=== PATIENT | female | born 1935 | race Asian ===

== ENCOUNTER → 2022-01-25 08:43 | Outpatient (CLI) | payer MEDICARE, BC, SELFPAY ==
[2022-01-25 09:12] LABS: Add Manual Diff / Slide Review NO; Basophils Absolute Auto 0 /uL (0-100); Basophils Percent Auto 0.7 % (0-2); Eosinophils Absolute Auto 300 /uL (0-450); Eosinophils Percent Auto 5.6 % (2-4); Hematocrit 38.3 % (36-46); Hemoglobin 13.2 g/dL (12.0-16.0); Lymphocytes Absolute Auto 1100 /uL (1100-4500); Lymphocytes Percent Auto 17.3 % (25-40); Mean Corpuscular HGB Conc 34.5 % (30-36); Mean Corpuscular Volume 98.6 fL (80-100); Monocytes Absolute Auto 500 /uL (0-900); Monocytes Percent Auto 7.6 % (3-14); Neutrophils Absolute Auto 4200 /uL (1500-7000); Neutrophils Percent Auto 68.8 % (50-75); Platelet Count 207 X10^3/uL (150-400); Red Blood Cell Count 3.88 X10^6/uL (4.0-5.2); Red Cell Distribution Width 15.6 % (11.6-14.8); White Blood Cell Count 6.1 X10^3/uL (4.5-11.0)
[2022-01-25 09:26] LABS: Erythrocyte Sedimentation Rate 34 MM/HR (0-20)
[2022-01-25 09:30] LABS: Alanine Aminotransferase 18 IU/L (<35); Albumin 4.3 g/dL (3.5-5.0); Albumin Globulin Ratio 1.4 (1.0-2.8); Alkaline Phosphatase 44 U/L (38-126); Aspartate Aminotransferase 28 IU/L (14-36); BUN Creatinine Ratio 15.7 (6-22); Bilirubin Total 0.6 mg/dL (0.2-1.3); Blood Urea Nitrogen 14 mg/dL (7-17); C-Reactive Protein Quant < 0.5 mg/dL (<1.0); Calcium 8.8 mg/dL (8.4-10.2); Carbon Dioxide 31 mmol/L (22-32); Chloride 104 mmol/L (98-107); Cholesterol 214 mg/dL (140-199); Estimated Glomerular Filt Rate > 60 mL/min (>60); Globulin 3.1 g/dL (1.7-4.1); Glucose 96 mg/dL (80-110); HDL Cholesterol 77 mg/dL (40-60); HEMOLYSIS < 15 (0-50); LDL Cholesterol Calculated 106 mg/dL (<100); Potassium 3.9 mmol/L (3.4-5.1); Sodium 139 mmol/L (137-145); Total Protein 7.4 g/dL (6.3-8.2); Triglycerides 157 mg/dL (35-150)
== END ==
PROVIDERS: PCP Physician Assistant; Referring Provider Physician Assistant; Visit Provider Physician Assistant
DX: E78.5 Hyperlipidemia, unspecified (principal); M06.9 Rheumatoid arthritis, unspecified
CPT/HCPCS: 36415; 80053; 80061; 85025; 85651; 86140

== ENCOUNTER → 2022-10-17 13:55 | Outpatient (CLI) | payer MEDICARE, OTHER, SELFPAY ==
--- NOTE | 2022-10-17 | DI.MG.S_ITS ---
BILATERAL DIGITAL SCREENING MAMMOGRAM 3D/2D WITH CAD: 10/17/2022 CLINICAL: Routine screening. Comparison is made to exam dated: 03/31/2021 mammogram - outside location. Both breasts are heterogeneously dense, which may obscure small masses (category c / 51-75% glandular tissue). Current study was also evaluated with a Computer Aided Detection (CAD) system. No significant masses, calcifications, or other findings are seen in either breast. There has been no significant interval change. IMPRESSION: NEGATIVE There is no mammographic evidence of malignancy. A 1 year screening mammogram is recommended. This exam was interpreted at Station ID: [id number]. NOTE: For mammograms, a report in lay terms will be sent to the patient. Approximately 15% of breast malignancies will not be visualized mammographically. In the management of a palpable breast mass, a negative mammogram must not discourage biopsy of a clinically suspicious lesion. Electronically Signed By: Gudelia [email or web address]/[email or web address]:10/17/2022 17:34:36 letter sent: Normal Exam ACR BI-RADS Category 1: Negative [id number]
== END ==
PROVIDERS: PCP Physician Assistant; Referring Provider Physician Assistant; Visit Provider Physician Assistant
DX: Z12.31 Encounter for screening mammogram for malignant neoplasm of breast (principal)
CPT/HCPCS: 77063; 77067

== ENCOUNTER → 2023-01-02 10:56 | Outpatient (CLI) | payer MEDICARE, OTHER, SELFPAY ==
[2023-01-02 12:44] LABS: Add Manual Diff / Slide Review NO; Basophils Absolute Auto 0 /uL (0-100); Eosinophils Absolute Auto 100 /uL (0-450); Eosinophils Percent Auto 1.6 % (2-4); Hematocrit 34.4 % (36-46); Hemoglobin 11.7 g/dL (12.0-16.0); Lymphocytes Absolute Auto 1100 /uL (1100-4500); Lymphocytes Percent Auto 23.2 % (25-40); Mean Corpuscular Hemoglobin 34.5 PG (26-34); Mean Corpuscular Volume 101.7 fL (80-100); Monocytes Absolute Auto 400 /uL (0-900); Monocytes Percent Auto 8.4 % (3-14); Neutrophils Absolute Auto 3200 /uL (1500-7000); Neutrophils Percent Auto 65.8 % (50-75); Platelet Count 183 X10^3/uL (150-400); Red Blood Cell Count 3.39 X10^6/uL (4.0-5.2); Red Cell Distribution Width 14.3 % (11.6-14.8); White Blood Cell Count 4.8 X10^3/uL (4.5-11.0)
[2023-01-02 13:11] LABS: HEMOLYSIS < 15 (0-50); Iron 110 ug/dL (37-170)
[2023-01-02 13:21] LABS: Percent Iron Saturation 45 % (15-50); Total Iron Binding Capacity 247 ug/dL (265-497); Transferrin 214 mg/dL (206-381)
[2023-01-02 13:52] LABS: Ferritin 338 ng/mL (11-264)
== END ==
PROVIDERS: PCP Physician Assistant; Referring Provider Internal Medicine Rheumatology; Visit Provider Internal Medicine Rheumatology
DX: M05.9 Rheumatoid arthritis with rheumatoid factor, unspecified (principal); D64.9 Anemia, unspecified
CPT/HCPCS: 36415; 82728; 83540; 83550; 85025

== ENCOUNTER 2023-08-19 22:07 | Inpatient (IN) | payer MEDICARE, OTHER, SELFPAY ==
[2023-08-19 22:10] VITALS: BP 159/69; PULSE 66; O2SAT 98
[2023-08-19 22:13] VITALS: BP 121/67; PULSE 66; RESP 18; TEMP 36.3; O2SAT 99; BMI 20.4
--- NOTE | 2023-08-19 22:19 | DI.RAD.S_ITS ---
PROCEDURE: XR HIP W PEL IF DONE RT 2V INDICATIONS: fall with pain TECHNIQUE: 2 views of the hip were acquired. COMPARISON: None. FINDINGS: Bones: Diffuse osteopenia. Lower lumbar spondylosis. Degenerative changes of the bilateral hips. Bony pelvis appears intact. Comminuted, mildly displaced right intertrochanteric femoral neck fracture. Soft tissues: No suspicious soft tissue calcifications or masses. IMPRESSION: Mildly comminuted intertrochanteric right femoral neck fracture. Dictated by: Randall Jansen M.D. on 08/19/2023 at 23:59 Approved by: Randall Jansen M.D. on 08/20/2023 at 0:00
--- NOTE | 2023-08-19 22:23 | ED.FALL ---
HPI - Fall General Chief Complaint: Fall Stated Complaint: R hip pain Time Seen by Provider: 08/19/23 22:17 Source: patient and family Mode of arrival: EMS Limitations: no limitations History of Present Illness HPI Narrative: Patient is an 87-year-old female. Lives at an independent living facility. At baseline ambulates without assistance of a cane or walker or wheelchair. Not on blood thinners. She was walking at the facility where she lives where she states that she felt like her right hip gave out on her and then she fell down landing on her right hip. She was unable to walk afterwards. Had to crawl back to her room. She reports that she did not hit her head. No loss of consciousness. No other injuries from the event. Has discomfort with any palpation or movement of the right hip. Unable to stand on the right hip. She states she did not trip. Prior to the fall she did not have palpitations or lightheadedness or shortness of breath or headache. She states she just felt like her right hip gave out on her. Related Data Allergies Allergy/AdvReac Type Severity Reaction Status Date / Time No Known Drug Allergies Allergy Verified 08/19/23 22:21 Review of Systems Cardiovascular Cardiovascular: Reports system reviewed and no additional complaints, except as documented Respiratory Respiratory: Reports system reviewed and no additional complaints, except as documented Gastrointestinal Gastrointestinal: Reports system reviewed and no additional complaints, except as documented Genitourinary Genitourinary: Reports system reviewed and no additional complaints, except as documented Musculoskeletal Musculoskeletal: Reports system reviewed and no additional complaints, except as documented Hematologic/Lymphatic On Anticoagulants: No Exam Initial Vital Signs Initial Vital Signs: Vital Signs Pulse Rate 66 08/19/23 22:10 Blood Pressure 159/69 H 08/19/23 22:10 Pulse Oximetry 98 08/19/23 22:10 HENAK Head: normal to inspection and normocephalic Resp Effort & Inspection: normal respiratory effort Auscultation: clear to auscultation bilaterally Cardio Rate: regular rate Rhythm: regular rhythm Back/Spine/Pelvis Cervical Spine: No cervical spinal tenderness Skin General: no rashes or lesions noted Neuro General: patient alert, patient awake and patient oriented x3 Cognition: normal cognition Speech: speech normal Extrem Other: Bilateral upper extremities and left lower extremities unremarkable. Right hip and right knee are unremarkable. She does have tenderness to palpation in any movement of the right hip. Scores GCS R[place] coma scale eye opening: Spontaneous [place] coma scale verbal response: Orientated Course Orders Ordered: ED Orders 08/19/23 22:19 XR hip w pel if done RT 2V Stat 08/19/23 23:09 CT pelvis wo con Stat 08/19/23 23:24 Basic Metabolic Panel Stat Complete Blood Count AUTO DIFF Stat 08/20/23 01:33 Consult to Orthopedic Surgery Stat Discontinued Medications Morphine Sulfate (Morphine 2 Mg/Ml Inj) 2 mg IV NOW ONE Stop: 08/19/23 22:41 Last Admin: 08/19/23 23:40 Dose: 2 mg Documented By: JESSICA Morphine Sulfate (Morphine 2 Mg/Ml Inj) 2 mg IV NOW ONE Stop: 08/20/23 00:56 Last Admin: 08/20/23 01:00 Dose: 2 mg Documented By: JESSICA Vital Signs Vital signs: Vital Signs - 8 hr 08/19/23 22:10 08/19/23 22:10 08/19/23 22:13 Temperature 97.4 F L Pulse Rate 66 66 Respiratory Rate 18 Blood Pressure 159/69 H 121/67 Pulse Oximetry 98 99 Oxygen Delivery Method Room Air 08/19/23 22:30 08/19/23 22:31 08/19/23 22:31 Temperature Pulse Rate 65 68 Respiratory Rate Blood Pressure 138/62 Pulse Oximetry 98 99 Oxygen Delivery Method 08/19/23 23:00 08/19/23 23:00 08/19/23 23:30 Temperature Pulse Rate 71 70 Respiratory Rate Blood Pressure 149/65 H Pulse Oximetry 98 97 Oxygen Delivery Method 08/20/23 00:00 08/20/23 00:30 Temperature Pulse Rate 65 63 Respiratory Rate 18 Blood Pressure Pulse Oximetry 96 96 Oxygen Delivery Method MDM - Fall Lab Data Attestation: I reviewed the patient's lab results. 08/19/23 23:24 08/19/23 23:24 Labs: Lab Results 08/19/23 Range/Units 23:24 WBC 9.8 (4.5-11.0) X10^3/uL RBC 3.25 L (4.0-5.2) X10^6/uL Hgb 11.3 L (12.0-16.0) g/dL Hct 32.7 L (36-46) % MCV 100.6 H (80-100) fL MCH 34.7 H (26-34) PG MCHC 34.5 (30-36) % RDW 15.7 H (11.6-14.8) % Plt Count 183 (150-400) X10^3/uL Neut % (Auto) 86.0 H (50-75) % Lymph % (Auto) 4.4 L (25-40) % [place] % (Auto) 9.1 (3-14) % Eos % (Auto) 0.0 L (2-4) % Baso % (Auto) 0.5 (0-2) % Neut # (Auto) 8400 H (5507-8903) /uL Lymph # (Auto) 400 L (0971-0067) /uL [place] # (Auto) 900 (0-900) /uL Eos # (Auto) 0 (0-450) /uL Baso # (Auto) 0 (0-100) /uL Sodium 139 (137-145) mmol/L Potassium 3.8 (3.4-5.1) mmol/L Chloride 100 (98-107) mmol/L Carbon Dioxide 31 (22-32) mmol/L BUN 32 H (7-17) mg/dL Creatinine 1.00 (0.52-1.04) mg/dL Estimated GFR 55 L (>60) mL/min BUN/Creatinine Ratio 32.0 H (6-22) Glucose 109 (80-110) mg/dL Calcium 9.7 (8.4-10.2) mg/dL Imaging Data Extremity x-ray #1: Radiologist's Impression: PROCEDURE: XR HIP W PEL IF DONE RT 2V INDICATIONS: fall with pain TECHNIQUE: 2 views of the hip were acquired. COMPARISON: None. FINDINGS: Bones: Diffuse osteopenia. Lower lumbar spondylosis. Degenerative changes of the bilateral hips. Bony pelvis appears intact. Comminuted, mildly displaced right intertrochanteric femoral neck fracture. Soft tissues: No suspicious soft tissue calcifications or masses. IMPRESSION: Mildly comminuted intertrochanteric right femoral neck fracture. CT pelvis: Radiologist's Impression: ROCEDURE: CT PEL WO CON INDICATIONS: R femoral neck/intertrochanteric hip fracture TECHNIQUE: Noncontrast 3 mm axial sections acquired through the bony pelvis, with coronal and sagittal reformatting. COMPARISON: None. FINDINGS: Image quality: Diagnostic Bones: There is a comminuted, mildly impacted fracture involving the intertrochanteric region of the right femoral neck. Remainder of the visualized osseous structures appear intact. Bony pelvis appears intact. Degenerative changes of the bilateral hips. Lower lumbar spondylosis. No suspicious osseous lesions. Soft tissues: There is soft tissue edema surrounding the fracture site. Subcutaneous soft tissue edema of the right hip. No organized fluid collection seen. No significant joint effusion identified. Intraperitoneal structures appear unremarkable without acute abnormalities. Moderate fecal burden seen throughout the colon. Dense atherosclerotic calcifications of the abdominal aorta and iliac vessels. No aneurysmal dilatation. Normal appendix. No pathologic pelvic adenopathy. IMPRESSION: Comminuted, minimally impacted fracture of the intertrochanteric region of the right femoral neck MDM Narrative Medical decision making narrative: At baseline patient is very ambulatory. Is in the independent living at [facility]. Normally is able to ambulate without assist devices. Had a fall and now has right-sided intertrochanteric hip fracture. Not on thinners. History of rheumatoid arthritis. No other injuries from the event. Discussed the case with Dr. Woodward (orthopedic surgery) who will evaluate the patient in the morning. Discussed the case with Dr. Porras hospitalist who will admit. Discussed the need for admission with the patient and her family at bedside. They expressed understanding and agreement with plan. Discharge Plan Departure Patient Disposition: Admitted As Inpatient Clinical Impression: Intertrochanteric fracture of right hip Admit Date/Time: 08/20/23 01:56
[2023-08-19 22:30] VITALS: PULSE 65; O2SAT 98
[2023-08-19 22:31] VITALS: BP 138/62; PULSE 68; O2SAT 99
[2023-08-19 23:00] VITALS: BP 149/65; PULSE 71; O2SAT 98
--- NOTE | 2023-08-19 23:09 | DI.CT.S_ITS ---
PROCEDURE: CT PEL WO CON INDICATIONS: R femoral neck/intertrochanteric hip fracture TECHNIQUE: Noncontrast 3 mm axial sections acquired through the bony pelvis, with coronal and sagittal reformatting. COMPARISON: None. FINDINGS: Image quality: Diagnostic Bones: There is a comminuted, mildly impacted fracture involving the intertrochanteric region of the right femoral neck. Remainder of the visualized osseous structures appear intact. Bony pelvis appears intact. Degenerative changes of the bilateral hips. Lower lumbar spondylosis. No suspicious osseous lesions. Soft tissues: There is soft tissue edema surrounding the fracture site. Subcutaneous soft tissue edema of the right hip. No organized fluid collection seen. No significant joint effusion identified. Intraperitoneal structures appear unremarkable without acute abnormalities. Moderate fecal burden seen throughout the colon. Dense atherosclerotic calcifications of the abdominal aorta and iliac vessels. No aneurysmal dilatation. Normal appendix. No pathologic pelvic adenopathy. IMPRESSION: Comminuted, minimally impacted fracture of the intertrochanteric region of the right femoral neck Dictated by: Randall Jansen M.D. on 08/20/2023 at 0:27 Approved by: Randall Jansen M.D. on 08/20/2023 at 0:30
[2023-08-19 23:30] VITALS: PULSE 70; O2SAT 97
[2023-08-19] MEDS: MORPHINE 2 MG/ML INJ IV (23:40)
[2023-08-19 23:58] LABS: Add Manual Diff / Slide Review NO; Basophils Absolute Auto 0 /uL (0-100); Basophils Percent Auto 0.5 % (0-2); Eosinophils Absolute Auto 0 /uL (0-450); Hematocrit 32.7 % (36-46); Hemoglobin 11.3 g/dL (12.0-16.0); Lymphocytes Absolute Auto 400 /uL (1100-4500); Lymphocytes Percent Auto 4.4 % (25-40); Mean Corpuscular HGB Conc 34.5 % (30-36); Mean Corpuscular Hemoglobin 34.7 PG (26-34); Mean Corpuscular Volume 100.6 fL (80-100); Monocytes Absolute Auto 900 /uL (0-900); Monocytes Percent Auto 9.1 % (3-14); Neutrophils Absolute Auto 8400 /uL (1500-7000); Platelet Count 183 X10^3/uL (150-400); Red Blood Cell Count 3.25 X10^6/uL (4.0-5.2); Red Cell Distribution Width 15.7 % (11.6-14.8); White Blood Cell Count 9.8 X10^3/uL (4.5-11.0)
[2023-08-20] VITALS (19 sets, daily range): BP systolic 90–153; BP diastolic 46–68; PULSE 57–82; RESP 12–18; TEMP 36.2–37.6; O2SAT 93–100; BMI 20.4
--- NOTE | 2023-08-20 | DI.RAD.S_ITS ---
PROCEDURE: XR HIP W PEL IF DONE RT 2V INDICATIONS: FEMUR NAILING TECHNIQUE: 4 fluoroscopic views of the hip were acquired. COMPARISON: [facility], CR, XR HIP W PEL IF DONE RT 2V, 08/19/2023, 22:30. FINDINGS: 4 intraoperative fluoroscopic images of the right hip demonstrate interval open reduction and internal fixation of previously described right intertrochanteric femoral neck fracture. IMPRESSION: Fluoroscopic support for ORIF of no intertrochanteric right femoral neck fracture. Please see separate procedure note for further details. Dictated by: Randall Jansen M.D. on 08/20/2023 at 22:15 Approved by: Randall Jansen M.D. on 08/20/2023 at 22:17
[2023-08-20 00:08] LABS: Blood Urea Nitrogen 32 mg/dL (7-17); Calcium 9.7 mg/dL (8.4-10.2); Carbon Dioxide 31 mmol/L (22-32); Chloride 100 mmol/L (98-107); Estimated Glomerular Filt Rate 55 mL/min (>60); Glucose 109 mg/dL (80-110); HEMOLYSIS < 15 (0-50); Potassium 3.8 mmol/L (3.4-5.1); Sodium 139 mmol/L (137-145)
[2023-08-20] MEDS: MORPHINE 2 MG/ML INJ IV (01:00)
[2023-08-20] MEDS: SODIUM CHLORIDE 0.9% 1,000 ML 100 ML IV ×2 (04:13→14:18)
[2023-08-20] MEDS: ONDANSETRON 4 MG/2 ML INJ IV (04:14)
--- NOTE | 2023-08-20 04:32 | PM.HP.1 ---
History of Present Illness History of Present Illness Chief complaint: R hip pain Narrative: 87 years old female with history of rheumatic arthritis on methotrexate, hypertension, hyperlipidemia, presents to the ER after ground-level fall while walking the facility. The patient's leg gave away and she fell on her right side landing on her right hip. Unable to ambulate since then due to pain. Denies any loss of consciousness, head injury, chest pain, palpitations, lightheadedness or loss of balance prior to the event. In the ER she was found to have right femoral neck fracture on the CT scan. Orthopedic surgery was contacted and will see her in the morning. [facility] Social History household members: none Smoking Status: Never smoker alcohol intake: never Meds Home Medications and Allergies Home Medications Medication Instructions Recorded Confirmed Type amlodipine 5 mg tablet 5 mg PO DAILY 08/20/23 08/20/23 History atorvastatin 40 mg tablet 40 mg PO DAILY 08/20/23 08/20/23 History fluoride (sodium) 1.1 % dental gel PO BID 08/20/23 History folic acid 1 mg tablet 1 mg PO DAILY 08/20/23 08/20/23 History irbesartan 150 mg tablet 150 mg PO DAILY 08/20/23 08/20/23 History methotrexate sodium 2.5 mg tablet 15 mg PO 08/20/23 History Allergies Allergy/AdvReac Type Severity Reaction Status Date / Time No Known Drug Allergies Allergy Verified 08/19/23 22:21 Review of Systems Review of Systems ROS: Yes All systems reviewed with the patient and are negative except as otherwise documented Constitutional Constitutional: Reports as per HPI and Reports system reviewed and no additional complaints, except as documented Eyes Eyes: Reports as per HPI and Reports system reviewed and no additional complaints, except as documented ENT Ears, Nose, Mouth, and Throat: Yes as per HPI and Yes system reviewed and no additional complaints, except as documented Cardiovascular Cardiovascular: Reports system reviewed and no additional complaints, except as documented Respiratory Respiratory: Reports system reviewed and no additional complaints, except as documented Gastrointestinal Gastrointestinal: Reports system reviewed and no additional complaints, except as documented Genitourinary Genitourinary: Reports system reviewed and no additional complaints, except as documented Musculoskeletal Musculoskeletal: Reports system reviewed and no additional complaints, except as documented, Reports abnormal gait and Reports numbness Neurologic Neurologic: Reports system reviewed and no additional complaints, except as documented, Reports abnormal gait, Reports confusion and Reports numbness Psychiatric Psychiatric: Reports system reviewed and no additional complaints, except as documented and Reports confusion Exam Vital Signs (past 8 hours): - 08/19/23 22:10 08/19/23 22:10 08/19/23 22:13 Temperature 97.4 F L Pulse Rate 66 66 Respiratory Rate 18 Blood Pressure 159/69 H 121/67 Pulse Oximetry 98 99 Oxygen Delivery Method Room Air Oxygen Flow Rate 08/19/23 22:30 08/19/23 22:31 08/19/23 22:31 Temperature Pulse Rate 65 68 Respiratory Rate Blood Pressure 138/62 Pulse Oximetry 98 99 Oxygen Delivery Method Oxygen Flow Rate 08/19/23 23:00 08/19/23 23:00 08/19/23 23:30 Temperature Pulse Rate 71 70 Respiratory Rate Blood Pressure 149/65 H Pulse Oximetry 98 97 Oxygen Delivery Method Oxygen Flow Rate 08/20/23 00:00 08/20/23 00:30 08/20/23 01:00 Temperature Pulse Rate 65 63 65 Respiratory Rate 18 Blood Pressure Pulse Oximetry 96 96 96 Oxygen Delivery Method Oxygen Flow Rate 08/20/23 01:32 08/20/23 02:00 08/20/23 02:30 Temperature Pulse Rate 82 57 L 57 L Respiratory Rate Blood Pressure Pulse Oximetry 96 97 Oxygen Delivery Method Oxygen Flow Rate 08/20/23 03:00 08/20/23 03:30 08/20/23 03:32 Temperature Pulse Rate 58 L 62 62 Respiratory Rate Blood Pressure Pulse Oximetry 96 97 99 Oxygen Delivery Method Room Air Oxygen Flow Rate 08/20/23 03:36 08/20/23 04:13 Temperature 97.2 F L Pulse Rate 60 Respiratory Rate 17 Blood Pressure 109/49 L 153/68 H Pulse Oximetry 96 Oxygen Delivery Method Oxygen Flow Rate 0 Oxygen Delivery Method Room Air Oxygen Flow Rate 0 Const General: cooperative, comfortable and well developed Orientation: alert and oriented x3 HENMT Head: normal to inspection, normocephalic and atraumatic Face and sinus: normal facial exam Mouth: oral mucosae normal and moist mucous membranes Throat: posterior oropharynx normal Eyes General: appearance normal, both eyes and all related structures Pupils: PERRL EOM: EOM intact bilaterally Neck Neck: normal visual inspection and full ROM Chest Chest: normal inspection of the chest Resp Effort & Inspection: normal respiratory effort and able to speak in complete sentences Auscultation: clear to auscultation bilaterally Cardio Palpation: normal PMI Rate: regular rate Rhythm: regular rhythm Heart Sounds: S1 normal and S2 normal GI Inspection: normal to inspection Palpation: soft and no hepatosplenomegaly Auscultation: normal bowel sounds Skin General: no rashes or lesions noted Lesions: no lesions Rashes: no rashes Trauma: no lacerations or abrasions Neuro General: patient alert, patient awake, patient oriented x3 and no focal motor deficits Cranial Nerves: CN's II-XI intact bilaterally Cognition: normal cognition Speech: speech normal Gait: normal gait Motor: muscle tone normal throughout Sensory Exam: no sensory deficits noted Extrem General: full ROM and no calf tenderness Psych Appearance: grossly normal Mental Status: mental status grossly normal Speech and Movement: speech and movement normal Objective Labs 08/19/23 23:24 08/19/23 23:24 Labs: Laboratory Results - last 24 hr 08/19/23 23:24 WBC 9.8 RBC 3.25 L Hgb 11.3 L Hct 32.7 L MCV 100.6 H MCH 34.7 H MCHC 34.5 RDW 15.7 H Plt Count 183 Neut % (Auto) 86.0 H Lymph % (Auto) 4.4 L [place] % (Auto) 9.1 Eos % (Auto) 0.0 L Baso % (Auto) 0.5 Neut # (Auto) 8400 H Lymph # (Auto) 400 L [place] # (Auto) 900 Eos # (Auto) 0 Baso # (Auto) 0 Sodium 139 Potassium 3.8 Chloride 100 Carbon Dioxide 31 BUN 32 H Creatinine 1.00 Estimated GFR 55 L BUN/Creatinine Ratio 32.0 H Glucose 109 Calcium 9.7 Assessment & Plan Assessment and plan (1) Intertrochanteric fracture of right hip: Status: Acute Plan: Pain medication and Zofran as needed IV fluids N.p.o. Orthopedic surgery consult PT and OT evaluation on discharge consult for discharge planning (2) HTN (hypertension): Status: Acute Plan: Restart irbesartan and amlodipine (3) Hyperlipemia: Status: Acute Plan: Restart atorvastatin (4) Rheumatoid arthritis: Status: Acute Plan: Hold methotrexate for now Time Spent With Patient Time with patient: 50 to 69 minutes with 50% spent counseling/coordinating care Quality VTE Deep Vein Thrombosis/Pulmonary Embolism Present on Admission: No MIPS - Admit I confirm the patient?s Advance Care Plan is present, Code status is documented, Surrogate decision maker is in patient?s record [If Yes, STOP here]: Yes MIPS - Meds 'Current medications' to include all prescriptions, [id number] products, herbals, cannabis/cannabidiol products, and vitamin/mineral/dietary (nutritional) supplements. I have utilized all available resources to obtain, update, or review the patient?s current medications. [If Yes, STOP here]: Yes
--- NOTE | 2023-08-20 08:42 | P.HP_ITS ---
History of Present Illness History of Present Illness Chief complaint: R hip pain Narrative: From overnight provider: 87 years old female with history of rheumatic arthritis on methotrexate, hypertension, hyperlipidemia, presents to the ER after ground-level fall while walking the facility. The patient's leg gave away and she fell on her right side landing on her right hip. Unable to ambulate since then due to pain. Denies any loss of consciousness, head injury, chest pain, palpitations, lightheadedness or loss of balance prior to the event. In the ER she was found to have right femoral neck fracture on the CT scan. Orthopedic surgery was contacted and will see her in the morning. [facility] Social History household members: none Smoking Status: Never smoker alcohol intake: never Meds Home Medications and Allergies Home Medications Medication Instructions Recorded Confirmed Type amlodipine 5 mg tablet 5 mg PO DAILY 08/20/23 08/20/23 History atorvastatin 40 mg tablet 40 mg PO DAILY 08/20/23 08/20/23 History fluoride (sodium) 1.1 % dental gel PO BID 08/20/23 History folic acid 1 mg tablet 1 mg PO DAILY 08/20/23 08/20/23 History irbesartan 150 mg tablet 150 mg PO DAILY 08/20/23 08/20/23 History methotrexate sodium 2.5 mg tablet 15 mg PO 08/20/23 History Allergies Allergy/AdvReac Type Severity Reaction Status Date / Time No Known Drug Allergies Allergy Verified 08/19/23 22:21 Review of Systems Review of Systems Narrative: All other systems reviewed with the patient and are negative unless otherwise stated. Exam Narrative Exam Narrative: GEN: no acute distress, pleasant woman who appears younger than stated age HEENT: moist mucous membranes, PERRL NECK: trachea midline, no JVD CV: regular rate and rhythm, no murmurs PULM: clear bilaterally ABD: soft, nontender, nondistended, no organomegaly EXT: Right lower extremity shortened and has pain with movement NEURO: awake, alert, oriented, no focal deficits Objective Labs 08/19/23 23:24 08/19/23 23:24 Labs: Laboratory Results - last 24 hr 08/19/23 23:24 WBC 9.8 RBC 3.25 L Hgb 11.3 L Hct 32.7 L MCV 100.6 H MCH 34.7 H MCHC 34.5 RDW 15.7 H Plt Count 183 Neut % (Auto) 86.0 H Lymph % (Auto) 4.4 L [place] % (Auto) 9.1 Eos % (Auto) 0.0 L Baso % (Auto) 0.5 Neut # (Auto) 8400 H Lymph # (Auto) 400 L [place] # (Auto) 900 Eos # (Auto) 0 Baso # (Auto) 0 Sodium 139 Potassium 3.8 Chloride 100 Carbon Dioxide 31 BUN 32 H Creatinine 1.00 Estimated GFR 55 L BUN/Creatinine Ratio 32.0 H Glucose 109 Calcium 9.7 Assessment & Plan Assessment and plan (1) Intertrochanteric fracture of right hip: Status: Acute Plan: Pain medication and Zofran as needed IV fluids N.p.o. Orthopedic surgery consulted and will repair PT and OT evaluation on discharge SW consult for discharge planning, may need SNF (2) HTN (hypertension): Status: Acute Plan: Restart irbesartan and amlodipine (3) Hyperlipemia: Status: Acute Plan: Restart atorvastatin (4) Rheumatoid arthritis: Status: Acute Plan: Hold methotrexate for now Plan Dispo: Likely 2 days for surgery and dispo planning. Time Spent With Patient Time with patient: 50 to 69 minutes with 50% spent counseling/coordinating care Quality VTE Deep Vein Thrombosis/Pulmonary Embolism Present on Admission: No
[2023-08-20] MEDS: FOLIC ACID 1 MG TABLET PO (10:33)
[2023-08-20] MEDS: ACETAMINOPHEN 325 MG TABLET 650 MG PO ×2 (10:39→21:50)
--- NOTE | 2023-08-20 12:37 | P.HP_ITS ---
History of Present Illness History of Present Illness Date Patient Seen: 08/20/23 Time Patient Seen: 12:37 Chief complaint: R hip pain Narrative: She was walking and she slipped and twisted her hip. She felt like it broke prior to her falling and landing on her right hip. She is been diagnosed with osteoporosis and took several doses of Fosamax but then had some dental concerns. She has a history of rheumatoid arthritis for about 3 years and is followed by the Rheumatology Clinic at [facility]. She takes methotrexate and folic acid. She is not having severe pain in her hip joints since she got started on methotrexate. She does note significant right hip pain. She has supportive family at bedside including a daughter. She lives a [facility] but in the independent section. [facility] Social History household members: none Smoking Status: Never smoker alcohol intake: never Meds Home Medications and Allergies Home Medications Medication Instructions Recorded Confirmed Type amlodipine 5 mg tablet 5 mg PO DAILY 08/20/23 08/20/23 History atorvastatin 40 mg tablet 40 mg PO DAILY 08/20/23 08/20/23 History fluoride (sodium) 1.1 % dental gel PO BID 08/20/23 History folic acid 1 mg tablet 1 mg PO DAILY 08/20/23 08/20/23 History irbesartan 150 mg tablet 150 mg PO DAILY 08/20/23 08/20/23 History methotrexate sodium 2.5 mg tablet 15 mg PO 08/20/23 History Allergies Allergy/AdvReac Type Severity Reaction Status Date / Time No Known Drug Allergies Allergy Verified 08/19/23 22:21 Review of Systems Review of Systems Narrative: She was not lightheaded did not have chest pain or other problems prior to her fall. She notes isolated right hip pain. Exam Vital Signs (past 8 hours): Oxygen Delivery Method Room Air Oxygen Flow Rate 0 Narrative Exam Narrative: She is resting comfortably in bed, HEENT is benign, lungs are clear, cor regular rate rhythm, abdomen soft and benign, right hip foreshortening of the right hip, pain with range of motion, calf soft bilaterally distally, able to fire her toe flexors and extensors Objective Labs 08/19/23 23:24 08/19/23 23:24 Labs: Laboratory Results - last 24 hr 08/19/23 23:24 WBC 9.8 RBC 3.25 L Hgb 11.3 L Hct 32.7 L MCV 100.6 H MCH 34.7 H MCHC 34.5 RDW 15.7 H Plt Count 183 Neut % (Auto) 86.0 H Lymph % (Auto) 4.4 L Nance % (Auto) 9.1 Eos % (Auto) 0.0 L Baso % (Auto) 0.5 Neut # (Auto) 8400 H Lymph # (Auto) 400 L Nance # (Auto) 900 Eos # (Auto) 0 Baso # (Auto) 0 Sodium 139 Potassium 3.8 Chloride 100 Carbon Dioxide 31 BUN 32 H Creatinine 1.00 Estimated GFR 55 L BUN/Creatinine Ratio 32.0 H Glucose 109 Calcium 9.7 comminuted right intertrochanteric hip fracture with displacement, lesser trochanter is broken off as well as a intertrochanteric fracture. Assessment & Plan Assessment and plan (1) Rheumatoid arthritis: Status: Acute (2) Intertrochanteric fracture of right hip: Status: Acute (3) HTN (hypertension): Status: Acute Plan I had an extensive discussion with the family today and I have recommended a right hip intramedullary nail for intertrochanteric hip fracture. I told them that we can probably get this scheduled this afternoon with Dr. Raoul PULIDO as long as that works into his schedule. We discussed issues related to anticipated rehab and need for short-term stay at extended care facility postoperatively. She also had questions regarding the patient's osteoporosis. That is currently being managed by her principal military analyst. She does have some additional dental issues. She maybe a candidate for osteoporotic treatment that is not a bisphosphonate. Hip open reduction internal fixation complications risks benefits were discussed with the patient and the family. We are going to try and get scheduled for this afternoon. Quality VTE Deep Vein Thrombosis/Pulmonary Embolism Present on Admission: No
--- NOTE | 2023-08-20 16:10 | PM.HP.1 ---
History of Present Illness History of Present Illness Date Patient Seen: 08/20/23 Time Patient Seen: 16:10 Chief complaint: R hip pain Narrative: This is a 87-year-old female who I am seeing today in consultation for a right intertrochanteric femur fracture. She had a ground level fall resulting in this fracture yesterday. She is currently NPO. Past medical history of hyperlipidemia hypertension and rheumatoid arthritis. Denies any recent nausea, vomiting, diarrhea, fevers, chills or any other constitutional symptoms. No other complaints at this time. Regularly she is a community ambulator. [facility] Social History household members: none Smoking Status: Never smoker alcohol intake: never Meds Home Medications and Allergies Home Medications Medication Instructions Recorded Confirmed Type amlodipine 5 mg tablet 5 mg PO DAILY 08/20/23 08/20/23 History atorvastatin 40 mg tablet 40 mg PO DAILY 08/20/23 08/20/23 History fluoride (sodium) 1.1 % dental gel PO BID 08/20/23 History folic acid 1 mg tablet 1 mg PO DAILY 08/20/23 08/20/23 History irbesartan 150 mg tablet 150 mg PO DAILY 08/20/23 08/20/23 History methotrexate sodium 2.5 mg tablet 15 mg PO 08/20/23 History Allergies Allergy/AdvReac Type Severity Reaction Status Date / Time No Known Drug Allergies Allergy Verified 08/19/23 22:21 Review of Systems Review of Systems ROS: Yes All systems reviewed with the patient and are negative except as otherwise documented Exam Vital Signs (past 8 hours): Oxygen Delivery Method Room Air Oxygen Flow Rate 0 Narrative Exam Narrative: HEENT: Head atraumatic eyes anicteric moist mucous membranes Cardiovascular: Palpable peripheral pulses extremities are warm and well perfused Respiratory: Breathing comfortably on room air Psychiatric: Appropriate mood and affect Neuro: No acute deficits Musculoskeletal: Exam of the right lower extremity demonstrates hip held internally rotated and flexed. Did not perform any movement due to known injury. Distally sensation intact from L2 through S2. 2+ dorsalis pedis pulse with brisk capillary refill less 2 seconds. Objective Labs 08/19/23 23:24 08/19/23 23:24 Labs: Laboratory Results - last 24 hr 08/19/23 23:24 WBC 9.8 RBC 3.25 L Hgb 11.3 L Hct 32.7 L MCV 100.6 H MCH 34.7 H MCHC 34.5 RDW 15.7 H Plt Count 183 Neut % (Auto) 86.0 H Lymph % (Auto) 4.4 L [place] % (Auto) 9.1 Eos % (Auto) 0.0 L Baso % (Auto) 0.5 Neut # (Auto) 8400 H Lymph # (Auto) 400 L [place] # (Auto) 900 Eos # (Auto) 0 Baso # (Auto) 0 Sodium 139 Potassium 3.8 Chloride 100 Carbon Dioxide 31 BUN 32 H Creatinine 1.00 Estimated GFR 55 L BUN/Creatinine Ratio 32.0 H Glucose 109 Calcium 9.7 Assessment & Plan Assessment & Plan narrative: Assessment: 87-year-old female with right intertrochanteric femur fracture Plan: Discussed performing intramedullary nail right hip. Risks and benefits of surgery were discussed again including the risk of infection, damage to internal structures, bleeding, nerve injury, instability, need for revision surgery, blood clots, anesthesia and . No guarantees were made regarding outcomes. Patient expressed understanding and accepted these risks and wished to go forward with surgery and consent was signed. Quality VTE Deep Vein Thrombosis/Pulmonary Embolism Present on Admission: No
[2023-08-20] MEDS: LACTATED RINGERS 1,000 ML 42 ML IV (16:38)
--- NOTE | 2023-08-20 16:45 | SUR.OPER ---
Supine on padded [place] table with bilateral legs secured in padded positioning boots and suspended in positioning spars, operative leg in traction per surgeon. Head on one pillow. Arm on non-operative side secured on padded armboard <90 degrees abduction. Arm on operative side padded and resting across chest resting on pillow then secured with tape over sheet. Padded perineal post in place per surgeon.
--- NOTE | 2023-08-20 16:49 | P.OP_ITS ---
Operative Date/Time/Diagnoses Date of procedure: 08/20/23 Time of procedure: 18:16 Pre-op diagnosis: Right intertrochanteric femur fracture Post-op diagnosis: same Procedure & Clinicians Procedure: Right hip intramedullary nail Same procedure as scheduled: Yes Indications: Indications: This is a 87 year old female with the above diagnosis. We discussed that in order to facilitate mobilization early, as well as proper healing of the fracture, we recommend operative fixation using an intramedullary nail. The risks and benefits and alternatives to the procedure were discussed. The risks include bleeding, infection, damage to internal structures, failure of the implants, and future surgery as well as anesthesia. No guarantees were made regarding outcomes. Patient expressed understanding with these risks and wished to go forth with surgery. Surgeon: Michael Barrientos Click Yes if Unassisted: Yes Anesthesia Type: General Operative Notes Findings: Right displaced intertrochanteric femur fracture with displacement of the lesser tuberosity Closure Type: primary Specimen(s): none sent Prosthetic devices, grafts, tissues, transplants, or devices: 10 x 18 cm InterTAN nail with 85 mm lag screw and 80 mm compression screw 30 mm distal interlocking screw Estimated Blood Loss (mL): 25 Blood products transfused: none Procedure in detail: Details of operation: The patient's identity was verified. The right hip was verified and site of surgery was marked. Prophylactic antibiotics were administered. The patient was taken to the operating room and anesthesia was established. Patient was positioned supine on the operating table. The feet were padded and placed into the traction boots with the injured hip in slight adduction and the uninjured hip extended about 30?. A C-arm was then brought into the OR and positioned perpendicularly to allow visualization of the hip and AP and lateral planes. The fracture was reduced by applying longitudinal traction and internal rotation and a small amount of adduction. The lateral surface of the hip was sterilely prepped after which a vertical isolation drape was placed. The surgical team paused in the patient's identity, surgical procedure and surgical site were verified. A small incision was made proximal to the greater trochanter through the fascia to the tip of the trochanter could be palpated. A threaded guide pin was then inserted through the tip of the greater trochanter to the level of the lesser tuberosity. Once the wire was appropriately positioned the entry hole was drilled. The entry/channel Reamer was used to enter the cortex and reamed the metaphyseal portion of the canal. The intramedullary nail was assembled on the insertion handle and the nail was inserted and its depth verified. Our attention was then turned to the proximal locking of the nail. A small incision was made laterally over the distal vastus tubercle, through the fascia down to the bone and the targeting jig sleeve was advanced to the bone. Under fluoroscopic control, a guidewire was positioned through the lateral cortex of the femoral neck and into the center of the femoral head. Once the wire was appropriately positioned, the length of nail was measured the lateral cortex was opened with a drill. The lag screw was assembled on the insertion handle and advanced over the guidewire into the center of the femoral head to beneath the subchondral surface. The compression screw was then placed and compressed under fluoroscopic imaging. Final AP and lateral projections were taken confirming correct nail and screw placement. Our attention was then directed distally to the interlocking of the nail. An incision was made and the guide was used to place the sleeve down to the bone. The bone was then drilled and measured and interlocking screw was placed. The wounds were copiously irrigated. The subcutaneous area was closed with interrupted 2-0 Vicryl. The wound was then infiltrated with 0.5% marcaine with epinephrine. The skin was then closed with drake after which a sterile dressing was applied. Patient was subsequently transferred from the [place] table to the hospital bed. Disposition: The patient was taken to the recovery room in stable condition having tolerated the procedure without difficulty. Complications: none Post-operative Condition: stable Disposition: PACU Plan for aftercare: Postoperative plan: Weightbearing as tolerated with crutches or walker for 4 weeks. After 4 weeks it is okay to ambulate without assistance if stable and strong enough. DVT prophylaxis for 4 weeks (default aspirin 81 mg b.i.d., is unable to take aspirin, and then Lovenox, 40 mg subcutaneous daily). Okay to change dressings to clean dry dressings after 3 days. Okay for dressings to come off completely at 7 days. Okay for warm soap and water to run over the incision and a shower or sponge bath, however no soaking the wound. Follow-up in 2 weeks for staple removal, and follow-up in [address] Barrientos with x- rays on arrival
[2023-08-20] MEDS: CEFAZOLIN 2 GM/100 ML PREMIX 100 ML IV (17:10)
[2023-08-20] MEDS: BUPIVACAINE 0.5% (PF) 30 ML, EPINEPHrine 0.15 MG INJ (17:59)
[2023-08-20] MEDS: TRANEXAMIC ACID 1,000 MG in SODIUM CHLORIDE 0.9% 100 ML 200 MG IV (18:05)
[2023-08-20] MEDS: OXYCODONE IR 5 MG TABLET PO (21:49)
[2023-08-20] MEDS: MELATONIN 3 MG TABLET 9 MG PO (21:50)
[2023-08-20] MEDS: ATORVASTATIN 20 MG TABLET 40 MG PO (21:50)
[2023-08-21] VITALS: BP 136/48; PULSE 68; RESP 16; TEMP 36.6; O2SAT 99
[2023-08-21] MEDS: SODIUM CHLORIDE 0.9% 1,000 ML 100 ML IV (02:52)
[2023-08-21 04:46] VITALS: BP 140/63; PULSE 64; RESP 16; TEMP 36.5; O2SAT 98
--- NOTE | 2023-08-21 06:21 | PC.NURSE ---
Patient with increased confusion during the night, calm, no attempts to get OOB. Patient had Tylenol and Oxycodone 5 mg x 1 at HS and has denied pain throughout the night. Encouragement given to take analgesic in anticipation of pain with movement but patient continues to decline any analgesics. Right hip drsg C/D/I with JOSE RAUL wrap on thigh.
[2023-08-21] MEDS: FOLIC ACID 1 MG TABLET PO (09:55)
[2023-08-21] MEDS: AMLODIPINE 5 MG TABLET PO (09:55)
--- NOTE | 2023-08-21 10:26 | P.PN_ITS ---
Subjective Subjective Date Patient Seen: 08/21/23 Time Patient Seen: 07:50 Interval history: Pain is mild. Denies fever or chills. No nausea or vomiting. Exam Vital Signs (past 8 hours): - 08/21/23 04:46 Temperature 97.7 F Pulse Rate 64 Respiratory Rate 16 Blood Pressure 140/63 Pulse Oximetry 98 Oxygen Flow Rate 0 Oxygen Delivery Method Room Air Oxygen Flow Rate 0 Narrative Exam Narrative: 87-year-old female resting comfortably in bed in no apparent distress. Right hip dressing is clean, dry and intact. Motor functions intact bilateral lower extremities. Sensation grossly intact to light touch. Right calf is soft and nontender. Const General: comfortable Nutritional Appearance: average body habitus Orientation: alert Resp Effort & Inspection: normal respiratory effort and able to speak in complete sentences Objective Labs 08/19/23 23:24 08/19/23 23:24 [facility] Social History household members: none Smoking Status: Never smoker alcohol intake: never Assessment & Plan Post-op Postoperative Procedures: Procedures Operation Date: 08/20/23 16:45 Actual Procedure Side Surgeon p Intramedullary Nailing Femur Right Michael Barrientos MD Postoperative day: 1 Postoperative status narrative: Stable status post right hip intramedullary nail Postoperative plan narrative: Weightbearing as tolerated with crutches or walker for 4 weeks After 4 weeks okay to ambulate without assistance if stable and strong enough to do so. DVT prophylaxis for 4 weeks, aspirin 81 mg b.i.d. or if unable to take aspirin and Lovenox 40 mg subQ daily. Keep dressing in place for 3 days then okay to remove and replace with clean dressing. Continue to keep clean dressing and dry. Dressing may be completely removed at 7 days. Okay for warm soap and water to run over the incision and shower or sponge bath, no soaking until wound is fully healed Follow up outpatient orthopedic clinic in 2 weeks for staple removal, [address] Barrientos with x-rays on arrival. Quality VTE Deep Vein Thrombosis/Pulmonary Embolism Present on Admission: No
[2023-08-21 13:00] VITALS: BP 139/60; PULSE 83; RESP 16; TEMP 36.3; O2SAT 95
--- NOTE | 2023-08-21 13:20 | PT.IIE ---
Current Diagnoses Hyperlipidemia, unspecified (08/20/23) Essential (primary) hypertension (08/20/23) Rheumatoid arthritis, unspecified (08/20/23) Displaced intertrochanteric fracture of right femur, initial encounter for closed fracture (08/20/23) Surgery Performed Operation Date: 08/20/23 16:45 Actual Procedures p Intramedullary Nailing Femur(Right) - Michael Barrientos MD Physical Therapy Inpatient Evaluation/Re-Eval M1 PT/OT-IP Prior Functional Status Start: 08/21/23 11:10 Freq: NEEDED Status: Active Protocol: Document 08/21/23 11:14 MB (Rec: 08/21/23 13:20 MB [id number]) Medical Review Prior Functional Status Medical History Reviewed Yes Diet/Fluid Consistency Regular Communication WNLs Mobility and Gait I Activities of Daily Living and IADL's I Prior Functional Level (Other details) Pt lives at [facility], was I with gait and ADLs [employer] Social History Household Members none Living Arrangements Residential Facility Number of Floors (Floors) Two Floors Number of Stairs To Enter/Railing? 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 times at the facility M2 PT-IP Current Condition Start: 08/21/23 11:10 Freq: NEEDED Status: Active Protocol: Document 08/21/23 11:14 MB (Rec: 08/21/23 13:20 MB [id number]) Physical Therapy Current Condition Current Condition Evaluation Date 08/21/23 Treatment Diagnosis GLF, right hip fracture and s/ p nailing 08/20/23 M3 PT-IP Subjective Start: 08/21/23 11:10 Freq: NEEDED Status: Active Protocol: Document 08/21/23 11:14 MB (Rec: 08/21/23 13:20 MB [id number]) Subjective Physical Therapy Visit Type Type Initial Evaluation Visit Start Time 11:14 Visit Stop Time 12:14 Total Visit Minutes 60 Number of [employer] Visits 0 Physical Therapy Visit Comments Patient Comments Pt's daughter and her partner nearby during evaluation, taking notes and with many questions about plan for hospitalization, PT plan, plan for disposition, therapy goals, schedule, etc. Therapy Pain Assessment Pain When Pain Assessed During Mobility Pain Present Pain Present Pain Reported Location Right Hip Intensity 2 Scale Used HernandezLadanRivear (Faces) Description Acute Pain Management Techniques Modification of Treatment,Re- positioning,Timing of Activity with Medications M4 PT-IP Mobility and Gait Start: 08/21/23 11:10 Freq: NEEDED Status: Active Protocol: Document 08/21/23 11:14 MB (Rec: 08/21/23 13:20 MB [id number]) PT-Bed Mobility Assessment Supine to Sit Supine to Sit Minimal Assistance,1 Person Assistance,Head of Bed Elevated,Bedrails Scooting Scooting to Edge of Bed Minimal Assistance PT-Transfer Assessment Sit to and From Stand Sit to and from Stand Minimal Assistance,1 Person Assistance,Use of Upper Extremities Equipment Transfer Assistive Device Gait Belt,Front Wheeled Walker Orthotic/Prosthetic Devices or Brace: No Transfers Transfer Destination Chair Transfer Technique Steps to chair with RW Transfer Ability Level of Assist Minimal Assistance,1 Person Assistance,Use of Upper Extremities Comments Mobility Comments PT ed pt to take step-to steps with walker forward first, then right foot and then left foot for forward gait and reverse for retropulsion Gait Assessment Gait Gait Assistance Required: Minimum Assistance,1 Person Assist Distance (Feet) 2 Able to Maintain Weight Bearing Status Yes During Gait Assistive Devices Assistive Device Gait Belt,Front Wheeled Walker Orthotic/Prosthetic Devices or Brace: No Gait Deviations General Gait Pattern Antalgic,Step-to Gait Factors Limiting Gait Function Factors Limiting Gait Function Pain Comments Gait Comments See transfer comments above that reveal gait comments PT-Balance Assessment Sitting Balance and Reactions Static Sitting Balance Ability Fair Dynamic Sitting Balance Ability Fair Standing Balance and Reactions Static Standing Balance Ability Fair Dynamic Standing Balance Ability Fair Device Used RW M5 PT-IP Objective Assessments Start: 08/21/23 11:10 Freq: NEEDED Status: Active Protocol: Document 08/21/23 11:14 MB (Rec: 08/21/23 13:20 MB [id number]) Orientation Orientation/Cognition Level of Alertness Alert Orientation Name,Age,Birthday,Month,Year, Day of Week,Place,Situation Language Function Ability No Deficits Noted Safety Awareness Understands Safety Issues Memory Description No Deficits Noted Comments Pt does ask many questions and PT does provide answers and support Gross Range of Motion Upper Extremity ROM Assessment Within Functional Limits Lower Extremity ROM Assessment Right Impaired Strength Upper Extremity Strength Assessment Within Functional Limits Lower Extremity Strength Assessment Right Impaired Comments Strength Comments Pt does not tolerate ROM or MMT right LE post-op Sensation Assessment Comments Sensation Comments Pt does not follow sensory commands M6 PT-IP Treatment Start: 08/21/23 11:10 Freq: NEEDED Status: Active Protocol: Document 08/21/23 11:14 MB (Rec: 08/21/23 13:20 MB [id number]) Physical Therapy Treatment Exercises Exercises Ankle Pumps Education Education Provided Weight Bearing Status,Safety Other Treatments Other Treatment Performed PT ed pt, her daugther and her daughter's partner in [facility] RLE, post-op acute and SNF therapy practices, goals for acute stay, recommendations and PT answers extensive questions, 30 minutes of education, encouragement and listening M7 PT-IP Assessment and Plan Start: 08/21/23 11:10 Freq: NEEDED Status: Active Protocol: Document 08/21/23 11:14 MB (Rec: 08/21/23 13:20 MB [id number]) PT Summary Assessment and Plan Potential Rehabilitation Potential Good Status of Condition at Evaluation Stable Summary Impairments Pain,ROM,Strength,Balance,Bed Mobility,Transfers,Gait, Activity Tolerance Progress Towards Goals Progressing Toward Goals Assessment Summary Pt is a lady presenting with good and inquisitive support from her daughter and her daughter's partner s/p GLF, right hip fracture and nailing last date. Pt requires min A for bed mobility, transfer and to take a few steps with RW. They would like for her to d/c to SNF and verbalize [facility] during the PT evaluation. SNF is a great option for pt before returning to [facility]. Goals Bed Mobility Goal Standby Assistance Transfer Goal Standby Assistance,Front Wheeled Walker Gait Goal Standby Assistance,Front Wheel Walker Gait Distance 75 Frequency of Treatment Frequency Of Treatment Twice a Day Treatment Plan Physical Therapy Treatment Plan Bed Mobility Training,Transfer Training,Gait Training, Therapeutic Exercise,Balance Retraining,Discharge Planning, Neuromuscular Re-ed Weight Bearing Status Weight Bearing Status Weight Bear as Tolerated Recommendations To Nursing Amount of Assist Needed 1 Person Assist Discharge Recommendations PT Discharge Recommendations SNF Rehab Transportation Needs at Discharge Wheelchair/Cabulance
--- NOTE | 2023-08-21 15:25 | CM.DPC ---
DCP SNF Planning: Per MD, pt making some progress and to work with PT for initial eval today and to continue providing medical care at this time. Per PT, pt was able to participate with Arjun Cooley bedside and recommendation is SNF. SW called [facility] admissions and confirmed they have reviewed and can accept pt after she meets her MCR days for SNF coverage (would be able to d/c to SNF on Sat 16 and [facility] aware). SW met bedside with pt and explained role but pt states Dtr Lenora just left and SW updated her on [facility] acceptance and pt seems slightly forgetful/confused but very pleasant and mild. Pt requests SW call Dtr. SW called Dtr Lenora and she states they had some questions answered today and SW udpated that [facility] can accept and Dtr very relieved and appreciative and states she will be bedside again tomorrow as well. PASRR completed, no level II indicated and Ativan ordered but not given and no dx of anxiety. If pt has Ativan administered and ordered for d/c to SNF then PASRR will need to be updated and signed by . Plan: SW to follow for plan of likely pt d/c to [facility] on Sat 08/23 if medically stable before return to [facility]. Loly Lakhani MSW
--- NOTE | 2023-08-21 15:51 | PT.IPTN ---
Current Diagnoses Hyperlipidemia, unspecified (08/20/23) Essential (primary) hypertension (08/20/23) Rheumatoid arthritis, unspecified (08/20/23) Displaced intertrochanteric fracture of right femur, initial encounter for closed fracture (08/20/23) Surgery Performed Operation Date: 08/20/23 16:45 Actual Procedures p Intramedullary Nailing Femur(Right) - Michael Barrientos MD Physical Therapy Treatment Note M2 PT-IP Current Condition Start: 08/21/23 11:10 Freq: NEEDED Status: Active Protocol: Document 08/21/23 11:14 MB (Rec: 08/21/23 13:20 MB [id number]) Physical Therapy Current Condition Current Condition Evaluation Date 08/21/23 Treatment Diagnosis GLF, right hip fracture and s/ p nailing 08/20/23 M3 PT-IP Subjective Start: 08/21/23 11:10 Freq: NEEDED Status: Active Protocol: Document 08/21/23 16:40 ZF (Rec: 08/21/23 16:51 ZF [id number]) Subjective Physical Therapy Visit Type Type Treatment Note Visit Start Time 15:51 Visit Stop Time 16:22 Total Visit Minutes 31 Number of SPACE TECHNOLOGIST Visits 1 Physical Therapy Visit Comments Patient Comments Pt up in recliner when approached for therapy, motivated to participate. M4 PT-IP Mobility and Gait Start: 08/21/23 11:10 Freq: NEEDED Status: Active Protocol: Document 08/21/23 16:40 ZF (Rec: 08/21/23 16:51 ZF [id number]) PT-Transfer Assessment Sit to and From Stand Sit to and from Stand Moderate Assistance,1 Person Assistance,Use of Upper Extremities Equipment Transfer Assistive Device Gait Belt,Front Wheeled Walker Orthotic/Prosthetic Devices or Brace: No Comments Mobility Comments Pt scoots to edge of recliner ind. STS from low seat requires ModA w/2ww, Verbal cues for handplacement on arm rest to push up. Pt amb x6', x12' w/2ww, CGA/Gabino. Verbal cues for proper sequencing of steps. Pt takes very small steps with extended time standing and bending knees between steps, which she reports feels good. Pt tolerates ~20 mins of standing /amb. Pt agreeable to staying up in recliner after therapy. Icepack provided to R hip for reduced pain. Tylenol requested at the beginning of treatment, which nurse provided during session. Gait Assessment Gait Gait Assistance Required: Contact Guard Assist,Minimum Assistance,1 Person Assist Distance (Feet) 18 Able to Maintain Weight Bearing Status Yes During Gait Assistive Devices Assistive Device Gait Belt,Front Wheeled Walker Orthotic/Prosthetic Devices or Brace: No Gait Deviations General Gait Pattern Antalgic,Step-to Gait Factors Limiting Gait Function Factors Limiting Gait Function Pain Comments Gait Comments See mobility comments. PT-Balance Assessment Sitting Balance and Reactions Static Sitting Balance Ability Fair Dynamic Sitting Balance Ability Fair Standing Balance and Reactions Static Standing Balance Ability Fair Dynamic Standing Balance Ability Fair Device Used RW M5 PT-IP Objective Assessments Start: 08/21/23 11:10 Freq: NEEDED Status: Active Protocol: Document 08/21/23 11:14 MB (Rec: 08/21/23 13:20 MB [id number]) Orientation Orientation/Cognition Level of Alertness Alert Orientation Name,Age,Birthday,Month,Year, Day of Week,Place,Situation Language Function Ability No Deficits Noted Safety Awareness Understands Safety Issues Memory Description No Deficits Noted Comments Pt does ask many questions and PT does provide answers and support Gross Range of Motion Upper Extremity ROM Assessment Within Functional Limits Lower Extremity ROM Assessment Right Impaired Strength Upper Extremity Strength Assessment Within Functional Limits Lower Extremity Strength Assessment Right Impaired Comments Strength Comments Pt does not tolerate ROM or MMT right LE post-op Sensation Assessment Comments Sensation Comments Pt does not follow sensory commands M6 PT-IP Treatment Start: 08/21/23 11:10 Freq: NEEDED Status: Active Protocol: Document 08/21/23 16:40 ZF (Rec: 08/21/23 16:51 ZF [id number]) Physical Therapy Treatment Education Education Provided Weight Bearing Status,Safety M7 PT-IP Assessment and Plan Start: 08/21/23 11:10 Freq: NEEDED Status: Active Protocol: Document 08/21/23 16:40 ZF (Rec: 08/21/23 16:51 ZF [id number]) PT Summary Assessment and Plan Potential Rehabilitation Potential Good Status of Condition at Evaluation Stable Summary Impairments Pain,ROM,Strength,Balance,Bed Mobility,Transfers,Gait, Activity Tolerance Progress Towards Goals Progressing Toward Goals Assessment Summary Pt motivated for therapy. Reports some pain w/mobility. States that she has been declining tylenol, but requests some before treatment . Pt tolerates ~20 mins of standing/taking occasional steps today. Reports that standing feels good. Pt requires ModA for STS from low recliner seat. Recommending SNF to increase functional strength to return to [facility]. Goals Bed Mobility Goal Standby Assistance Transfer Goal Standby Assistance,Front Wheeled Walker Gait Goal Standby Assistance,Front Wheel Walker Gait Distance 75 Frequency of Treatment Frequency Of Treatment Twice a Day Treatment Plan Physical Therapy Treatment Plan Bed Mobility Training,Transfer Training,Gait Training, Therapeutic Exercise,Balance Retraining,Discharge Planning, Neuromuscular Re-ed Weight Bearing Status Weight Bearing Status Weight Bear as Tolerated Recommendations To Nursing Amount of Assist Needed 1 Person Assist Discharge Recommendations PT Discharge Recommendations SNF Rehab Transportation Needs at Discharge Wheelchair/Cabulance
[2023-08-21] MEDS: ACETAMINOPHEN 325 MG TABLET 650 MG PO (16:06)
[2023-08-21 18:00] VITALS: BP 115/43; PULSE 76; RESP 16; TEMP 36.2; O2SAT 96
--- NOTE | 2023-08-21 18:26 | P.PN_ITS ---
Subjective Subjective Interval history: 87 F admitted with a hip fracture, currently POD#1. She needed quite a bit of assistance with therapy. Does not wish to use a lot of opiates, as she feels quite foggy and confused on it. Exam Vital Signs (past 8 hours): - 08/21/23 13:00 Temperature 97.3 F L Pulse Rate 83 Respiratory Rate 16 Blood Pressure 139/60 Pulse Oximetry 95 Oxygen Delivery Method Room Air Oxygen Flow Rate 0 Narrative Exam Narrative: GEN: no acute distress, pleasant woman who appears younger than stated age HEENT: moist mucous membranes, PERRL NECK: trachea midline, no JVD CV: regular rate and rhythm, no murmurs PULM: clear bilaterally ABD: soft, nontender, nondistended, no organomegaly EXT: no edema NEURO: awake, alert, oriented, no focal deficits Objective Labs 08/19/23 23:24 08/19/23 23:24 [facility] Social History household members: none Smoking Status: Never smoker alcohol intake: never Assessment & Plan Assessment and plan (1) Intertrochanteric fracture of right hip: Status: Acute Plan: Continue PT / OT evaluations continue pain management adjustments, reduced opiate use. Continue tylenol, add diclofenac cream prn. (2) HTN (hypertension): Status: Acute Plan: Continue irbesartan and amlodipine (3) Hyperlipemia: Status: Acute Plan: Continue atorvastatin (4) Rheumatoid arthritis: Status: Acute Plan: Hold methotrexate for now Plan Dispo: Likely 2 days for surgery and dispo planning. Assessment & Plan narrative: Dispo: likely SNF, remains inpatient, possible discharge home Time Spent With Patient Time with patient: 50 to 69 minutes with 50% spent counseling/coordinating care Quality VTE Deep Vein Thrombosis/Pulmonary Embolism Present on Admission: No
[2023-08-21] MEDS: ACETAMINOPHEN 325 MG TABLET 975 MG PO (19:49)
[2023-08-21] MEDS: ASPIRIN EC 81 MG TABLET PO (21:36)
[2023-08-21] MEDS: ATORVASTATIN 20 MG TABLET 40 MG PO (21:37)
[2023-08-21 21:38] VITALS: BP 115/42; PULSE 77
[2023-08-21] MEDS: LOSARTAN 50 MG TABLET PO (21:38)
[2023-08-21 23:47] VITALS: BP 115/50; PULSE 78; RESP 16; TEMP 36.9; O2SAT 96
[2023-08-22] MEDS: ACETAMINOPHEN 325 MG TABLET 975 MG PO ×2 (02:05→12:23)
[2023-08-22 05:53] LABS: Add Manual Diff / Slide Review NO; Basophils Absolute Auto 0 /uL (0-100); Basophils Percent Auto 0.1 % (0-2); Eosinophils Absolute Auto 0 /uL (0-450); Eosinophils Percent Auto 0.1 % (2-4); Hematocrit 21.8 % (36-46); Hemoglobin 7.4 g/dL (12.0-16.0); Lymphocytes Absolute Auto 800 /uL (1100-4500); Lymphocytes Percent Auto 10.7 % (25-40); Mean Corpuscular Hemoglobin 34.6 PG (26-34); Mean Corpuscular Volume 101.9 fL (80-100); Monocytes Absolute Auto 400 /uL (0-900); Monocytes Percent Auto 4.6 % (3-14); Neutrophils Absolute Auto 6400 /uL (1500-7000); Neutrophils Percent Auto 84.5 % (50-75); Platelet Count 128 X10^3/uL (150-400); Red Blood Cell Count 2.14 X10^6/uL (4.0-5.2); Red Cell Distribution Width 15.5 % (11.6-14.8); White Blood Cell Count 7.6 X10^3/uL (4.5-11.0)
[2023-08-22 06:00] VITALS: BP 150/52; PULSE 81; RESP 16; TEMP 37.1; O2SAT 97
[2023-08-22 06:09] LABS: BUN Creatinine Ratio 32.7 (6-22); Blood Urea Nitrogen 18 mg/dL (7-17); Carbon Dioxide 26 mmol/L (22-32); Chloride 107 mmol/L (98-107); Estimated Glomerular Filt Rate > 60 mL/min (>60); Glucose 105 mg/dL (80-110); HEMOLYSIS < 15 (0-50); Magnesium 2.1 mg/dL (1.6-2.3); Potassium 3.9 mmol/L (3.4-5.1); Sodium 136 mmol/L (137-145)
--- NOTE | 2023-08-22 06:29 | PC.NURSE ---
slot shift manager: Patient is alert and oriented to self & date, stated she was on a ship when asked where she was. Requires frequent reorienting on place & situation. Appear anxious at times. Pulled out IV in RAC, stated it was poking her. New IV placed in LAC. Vital signs stable, Tylenol given Q6hrs for mild-moderate pain. Right hip incision drsg CDI. Smith d/c'd @ 0600, voided 175cc after smith was taken out, 1 PA w/ FWW to BSC. Call light within reach, fall precautions in place.
--- NOTE | 2023-08-22 07:11 | P.PN_ITS ---
Subjective Subjective Date Patient Seen: 08/22/23 Time Patient Seen: 07:11 Interval history: Patient is found lying down. She has some pain over the surgical site and is trying to control the pain with tylenol. She does not want any opiates right now. She has been working with PT. She denies any numbness or tingling down her left. Patient is hard of hearing and did not have her hearing aids in. Exam Vital Signs (past 8 hours): - 08/21/23 23:47 08/22/23 06:00 Temperature 98.5 F 98.8 F Pulse Rate 78 81 Respiratory Rate 16 16 Blood Pressure 115/50 L 150/52 H Pulse Oximetry 96 97 Oxygen Flow Rate 0 0 Oxygen Delivery Method Room Air Oxygen Flow Rate 0 Narrative Exam Narrative: Dressing is clean. No pain along posterior thigh or calf compartments. Able to dorsiflex and plantar flex at the ankle against resistance. Sensation grossly intact. Resp Effort & Inspection: normal respiratory effort and able to speak in complete sentences Objective Labs 08/22/23 05:14 08/22/23 05:14 Labs: Laboratory Results - last 24 hr 08/22/23 05:14 WBC 7.6 RBC 2.14 L Hgb 7.4 L Hct 21.8 L MCV 101.9 H MCH 34.6 H MCHC 34.0 RDW 15.5 H Plt Count 128 L Neut % (Auto) 84.5 H Lymph % (Auto) 10.7 L Garland % (Auto) 4.6 Eos % (Auto) 0.1 L Baso % (Auto) 0.1 Neut # (Auto) 6400 Lymph # (Auto) 800 L Garland # (Auto) 400 Eos # (Auto) 0 Baso # (Auto) 0 Sodium 136 L Potassium 3.9 Chloride 107 Carbon Dioxide 26 BUN 18 H Creatinine 0.55 Estimated GFR > 60 BUN/Creatinine Ratio 32.7 H Glucose 105 Calcium 8.0 L Magnesium 2.1 PFSH Social History household members: none Smoking Status: Never smoker alcohol intake: never Assessment & Plan Post-op Postoperative Procedures: Procedures Operation Date: 08/20/23 16:45 Actual Procedure Side Surgeon p Intramedullary Nailing Femur Right Michael Barrientos MD Postoperative day: 2 Postoperative status narrative: Stable status post right hip intramedullary nail Postoperative plan narrative: Weightbearing as tolerated with crutches or walker for 4 weeks. After 4 weeks it is okay to ambulate without assistance if stable and strong enough. DVT prophylaxis for 4 weeks (default aspirin 81 mg b.i.d., is unable to take aspirin, and then Lovenox, 40 mg subcutaneous daily). Okay to change dressings to clean dry dressings after 3 days. Okay for dressings to come off completely at 7 days. Okay for warm soap and water to run over the incision and a shower or sponge bath, however no soaking the wound. Follow-up in 2 weeks for staple removal, and follow-up in [address] Barrientos with x- rays on arrival Time Spent With Patient Time with patient: less than 15 minutes Quality VTE Deep Vein Thrombosis/Pulmonary Embolism Present on Admission: No
--- NOTE | 2023-08-22 07:16 | PM.PNPO.1 ---
Exam Vital Signs (past 8 hours): - 08/21/23 23:47 08/22/23 06:00 Temperature 98.5 F 98.8 F Pulse Rate 78 81 Respiratory Rate 16 16 Blood Pressure 115/50 L 150/52 H Pulse Oximetry 96 97 Oxygen Flow Rate 0 0 Oxygen Delivery Method Room Air Oxygen Flow Rate 0 Objective Labs 08/22/23 05:14 08/22/23 05:14 Labs: Laboratory Results - last 24 hr 08/22/23 05:14 WBC 7.6 RBC 2.14 L Hgb 7.4 L Hct 21.8 L MCV 101.9 H MCH 34.6 H MCHC 34.0 RDW 15.5 H Plt Count 128 L Neut % (Auto) 84.5 H Lymph % (Auto) 10.7 L Mccormick % (Auto) 4.6 Eos % (Auto) 0.1 L Baso % (Auto) 0.1 Neut # (Auto) 6400 Lymph # (Auto) 800 L Mccormick # (Auto) 400 Eos # (Auto) 0 Baso # (Auto) 0 Sodium 136 L Potassium 3.9 Chloride 107 Carbon Dioxide 26 BUN 18 H Creatinine 0.55 Estimated GFR > 60 BUN/Creatinine Ratio 32.7 H Glucose 105 Calcium 8.0 L Magnesium 2.1 PFSH Social History household members: none Smoking Status: Never smoker alcohol intake: never Assessment & Plan Post-op Postoperative Procedures: Procedures Operation Date: 08/20/23 16:45 Actual Procedure Side Surgeon p Intramedullary Nailing Femur Right Michael Barrientos MD Postoperative day: 1 Postoperative status narrative: Stable status post right hip intramedullary nail Quality VTE Deep Vein Thrombosis/Pulmonary Embolism Present on Admission: No
[2023-08-22] MEDS: AMLODIPINE 5 MG TABLET PO (08:52)
[2023-08-22] MEDS: ASPIRIN EC 81 MG TABLET PO ×2 (08:52→21:10)
[2023-08-22] MEDS: FOLIC ACID 1 MG TABLET PO (08:52)
--- NOTE | 2023-08-22 09:00 | PT.IPTN ---
Current Diagnoses Hyperlipidemia, unspecified (08/20/23) Essential (primary) hypertension (08/20/23) Rheumatoid arthritis, unspecified (08/20/23) Displaced intertrochanteric fracture of right femur, initial encounter for closed fracture (08/20/23) Surgery Performed Operation Date: 08/20/23 16:45 Actual Procedures p Intramedullary Nailing Femur(Right) - Michael Barrientos MD Physical Therapy Treatment Note M2 PT-IP Current Condition Start: 08/21/23 11:10 Freq: NEEDED Status: Active Protocol: Document 08/21/23 11:14 MB (Rec: 08/21/23 13:20 MB [id number]) Physical Therapy Current Condition Current Condition Evaluation Date 08/21/23 Treatment Diagnosis GLF, right hip fracture and s/ p nailing 08/20/23 M3 PT-IP Subjective Start: 08/21/23 11:10 Freq: NEEDED Status: Active Protocol: Document 08/22/23 09:32 TS (Rec: 08/22/23 09:41 TS [id number]) Subjective Physical Therapy Visit Type Type Treatment Note Visit Start Time 09:00 Visit Stop Time 09:31 Total Visit Minutes 31 Notes Per nursing pt ok to work with PT. Number of HARP REGULATOR Visits 2 Physical Therapy Visit Comments Patient Comments Pt found resting in bed, is agreeeable to PT. Therapy Pain Assessment Pain When Pain Assessed During Mobility Pain Present Pain Present Pain Reported M4 PT-IP Mobility and Gait Start: 08/21/23 11:10 Freq: NEEDED Status: Active Protocol: Document 08/22/23 09:32 TS (Rec: 08/22/23 09:41 TS [id number]) PT-Bed Mobility Assessment Supine to Sit Supine to Sit Minimal Assistance,1 Person Assistance,Head of Bed Elevated,Bedrails Sit to Supine Sit to Supine Moderate Assistance Scooting Scooting to Edge of Bed Minimal Assistance PT-Transfer Assessment Sit to and From Stand Sit to and from Stand Moderate Assistance,1 Person Assistance,Use of Upper Extremities Equipment Transfer Assistive Device Gait Belt,Front Wheeled Walker Orthotic/Prosthetic Devices or Brace: No Comments Mobility Comments BP in supine 127/53. She performed heel slides x5 on RLE prior to OOB mobility. Supine to sit HOB elevated 40D Gab[place] for RLE to EOB. pt cues for BUE support for uprighting trunk. Pt sat EOB SBA, denied any dizziness or lightheadedness. Sit to stand ModA with BUE on FWW, pt with decreased wbering on RLE. She ambulated ~20' with FWW in room with slow step to gait, had no buckling or LOB. Pt ambulated back to bed, sit to supine ModA for LEs into bed, required 2PA to scoot to HOB MaxA. Pt was left in bed, all needs met. Gait Assessment Gait Gait Assistance Required: Contact Guard Assist,1 Person Assist Distance (Feet) 20 Able to Maintain Weight Bearing Status Yes During Gait Assistive Devices Assistive Device Gait Belt,Front Wheeled Walker Orthotic/Prosthetic Devices or Brace: No Gait Deviations General Gait Pattern Antalgic,Decreased Stride Length,Decreased Feet Clearance,Step-to Gait Factors Limiting Gait Function Factors Limiting Gait Function Decreased Activity Tolerance, Decreased Strength,Pain,Poor Balance,Poor Safety Awareness Comments Gait Comments See mobility comments. PT-Balance Assessment Sitting Balance and Reactions Static Sitting Balance Ability Good Dynamic Sitting Balance Ability Fair Standing Balance and Reactions Static Standing Balance Ability Fair Dynamic Standing Balance Ability Fair Device Used RW M5 PT-IP Objective Assessments Start: 08/21/23 11:10 Freq: NEEDED Status: Active Protocol: Document 08/21/23 11:14 MB (Rec: 08/21/23 13:20 MB [id number]) Orientation Orientation/Cognition Level of Alertness Alert Orientation Name,Age,Birthday,Month,Year, Day of Week,Place,Situation Language Function Ability No Deficits Noted Safety Awareness Understands Safety Issues Memory Description No Deficits Noted Comments Pt does ask many questions and PT does provide answers and support Gross Range of Motion Upper Extremity ROM Assessment Within Functional Limits Lower Extremity ROM Assessment Right Impaired Strength Upper Extremity Strength Assessment Within Functional Limits Lower Extremity Strength Assessment Right Impaired Comments Strength Comments Pt does not tolerate ROM or MMT right LE post-op Sensation Assessment Comments Sensation Comments Pt does not follow sensory commands M6 PT-IP Treatment Start: 08/21/23 11:10 Freq: NEEDED Status: Active Protocol: Document 08/22/23 09:32 TS (Rec: 08/22/23 09:41 TS [id number]) Physical Therapy Treatment Exercises Exercises Heel Slides Education Education Provided Weight Bearing Status,Safety M7 PT-IP Assessment and Plan Start: 08/21/23 11:10 Freq: NEEDED Status: Active Protocol: Document 08/22/23 09:32 TS (Rec: 08/22/23 09:41 TS [id number]) PT Summary Assessment and Plan Potential Rehabilitation Potential Good Summary Impairments Pain,ROM,Strength,Balance,Bed Mobility,Transfers,Gait, Activity Tolerance Progress Towards Goals Progressing Toward Goals Assessment Summary Luz is making some progress with her mobility this session . She is [place] for sitting up to EOB, she demonstrates good seated balance with minimal use of hands. She continues to ambulate short distances in the room with a step to gait, demonstrated good mangement of FWW. PT continues to recommend SNF at this time. Goals Bed Mobility Goal Standby Assistance Transfer Goal Standby Assistance,Front Wheeled Walker Gait Goal Standby Assistance,Front Wheel Walker Gait Distance 75 Frequency of Treatment Frequency Of Treatment Twice a Day Treatment Plan Physical Therapy Treatment Plan Bed Mobility Training,Transfer Training,Gait Training, Therapeutic Exercise,Balance Retraining,Discharge Planning, Neuromuscular Re-ed Weight Bearing Status Weight Bearing Status Weight Bear as Tolerated Recommendations To Nursing Amount of Assist Needed 1 Person Assist Discharge Recommendations PT Discharge Recommendations SNF Rehab Transportation Needs at Discharge Wheelchair/Cabulance
[2023-08-22 09:09] VITALS: BP 126/50; PULSE 79; RESP 20; TEMP 36.7; O2SAT 99
--- NOTE | 2023-08-22 11:44 | CM.DPC ---
DCP Cont. Reviewed EMR and team rounds for status changes. Post-op day-2, pt is working with therapies, pain is being managed well without opiates. Plan is for d/c to [facility] tomorrow, 08/23. Continue to monitor for any further identified needs prior to d/c.
--- NOTE | 2023-08-22 12:55 | PT.IPTN ---
Current Diagnoses Acute posthemorrhagic anemia (08/20/23) Hyperlipidemia, unspecified (08/20/23) Essential (primary) hypertension (08/20/23) Rheumatoid arthritis, unspecified (08/20/23) Displaced intertrochanteric fracture of right femur, initial encounter for closed fracture (08/20/23) Surgery Performed Operation Date: 08/20/23 16:45 Actual Procedures p Intramedullary Nailing Femur(Right) - Michael Barrientos MD Physical Therapy Treatment Note M2 PT-IP Current Condition Start: 08/21/23 11:10 Freq: NEEDED Status: Active Protocol: Document 08/21/23 11:14 MB (Rec: 08/21/23 13:20 MB [id number]) Physical Therapy Current Condition Current Condition Evaluation Date 08/21/23 Treatment Diagnosis GLF, right hip fracture and s/ p nailing 08/20/23 M3 PT-IP Subjective Start: 08/21/23 11:10 Freq: NEEDED Status: Active Protocol: Document 08/22/23 13:23 TS (Rec: 08/22/23 13:30 TS [id number]) Subjective Physical Therapy Visit Type Type Treatment Note Visit Start Time 12:55 Visit Stop Time 13:21 Total Visit Minutes 26 Number of WORKERS' COMPENSATION CLAIMS EXAMINER Visits 3 Physical Therapy Visit Comments Patient Comments Pt found resting in bed, reports being tired but agreeable to PT Therapy Pain Assessment Pain When Pain Assessed During Mobility Pain Present Pain Present Pain Reported M4 PT-IP Mobility and Gait Start: 08/21/23 11:10 Freq: NEEDED Status: Active Protocol: Document 08/22/23 13:23 TS (Rec: 08/22/23 13:30 TS [id number]) PT-Bed Mobility Assessment Supine to Sit Supine to Sit Minimal Assistance,1 Person Assistance,Head of Bed Elevated,Bedrails Sit to Supine Sit to Supine Moderate Assistance Scooting Scooting to Edge of Bed Minimal Assistance PT-Transfer Assessment Sit to and From Stand Sit to and from Stand Minimal Assistance,1 Person Assistance,Use of Upper Extremities Equipment Transfer Assistive Device Gait Belt,Front Wheeled Walker Orthotic/Prosthetic Devices or Brace: No Comments Mobility Comments Supine to sit Gab[place] for RLE to EOB with HOB elevated, pt cued for uprighting trunk. Sit to stand [place] with use of FWW, pt has some difficulty bearing on RLE, requires cues for quad act and upright posture for improved balance. She ambulated ~40'CGA with use of FWW, pt has a step to antalgic gait with decreased wbering on RLE. Sit to supine into bed ModA for LE's into bed, pt required some repositioning with use of transfer pad. Pt was left in bed, all needs met . Gait Assessment Gait Gait Assistance Required: Contact Guard Assist,1 Person Assist Distance (Feet) 40 Able to Maintain Weight Bearing Status Yes During Gait Assistive Devices Assistive Device Gait Belt,Front Wheeled Walker Orthotic/Prosthetic Devices or Brace: No Gait Deviations General Gait Pattern Antalgic,Decreased Stride Length,Decreased Feet Clearance,Step-to Gait Factors Limiting Gait Function Factors Limiting Gait Function Decreased Activity Tolerance, Decreased Strength,Pain,Poor Balance,Poor Safety Awareness Comments Gait Comments See mobility comments. PT-Balance Assessment Sitting Balance and Reactions Static Sitting Balance Ability Good Dynamic Sitting Balance Ability Fair Standing Balance and Reactions Static Standing Balance Ability Fair Dynamic Standing Balance Ability Fair Device Used RW M5 PT-IP Objective Assessments Start: 08/21/23 11:10 Freq: NEEDED Status: Active Protocol: Document 08/21/23 11:14 MB (Rec: 08/21/23 13:20 MB [id number]) Orientation Orientation/Cognition Level of Alertness Alert Orientation Name,Age,Birthday,Month,Year, Day of Week,Place,Situation Language Function Ability No Deficits Noted Safety Awareness Understands Safety Issues Memory Description No Deficits Noted Comments Pt does ask many questions and PT does provide answers and support Gross Range of Motion Upper Extremity ROM Assessment Within Functional Limits Lower Extremity ROM Assessment Right Impaired Strength Upper Extremity Strength Assessment Within Functional Limits Lower Extremity Strength Assessment Right Impaired Comments Strength Comments Pt does not tolerate ROM or MMT right LE post-op Sensation Assessment Comments Sensation Comments Pt does not follow sensory commands M6 PT-IP Treatment Start: 08/21/23 11:10 Freq: NEEDED Status: Active Protocol: Document 08/22/23 13:23 TS (Rec: 08/22/23 13:30 TS [id number]) Physical Therapy Treatment Education Education Provided Weight Bearing Status,Safety M7 PT-IP Assessment and Plan Start: 08/21/23 11:10 Freq: NEEDED Status: Active Protocol: Document 08/22/23 13:23 TS (Rec: 08/22/23 13:30 TS [id number]) PT Summary Assessment and Plan Potential Rehabilitation Potential Good Summary Impairments Pain,ROM,Strength,Balance,Bed Mobility,Transfers,Gait, Activity Tolerance Progress Towards Goals Progressing Toward Goals Assessment Summary Luz is making good progress with her mobility. She required decreased assist for sit to stands to [place] with use of FWW. She progressed her gait to ~40'CGA with FWW, has no buckling or LOB. PT continues to recommend SNF rehab. Goals Bed Mobility Goal Standby Assistance Transfer Goal Standby Assistance,Front Wheeled Walker Gait Goal Standby Assistance,Front Wheel Walker Gait Distance 75 Frequency of Treatment Frequency Of Treatment Twice a Day Treatment Plan Physical Therapy Treatment Plan Bed Mobility Training,Transfer Training,Gait Training, Therapeutic Exercise,Balance Retraining,Discharge Planning, Neuromuscular Re-ed Weight Bearing Status Weight Bearing Status Weight Bear as Tolerated Recommendations To Nursing Amount of Assist Needed 1 Person Assist Discharge Recommendations PT Discharge Recommendations SNF Rehab Transportation Needs at Discharge Wheelchair/Cabulance
--- NOTE | 2023-08-22 13:00 | PM.PN.1 ---
Subjective Subjective Interval history: 87 F admitted with a hip fracture, currently POD#2. Hg dropped quite a bit to 7.4 today but she denies shortness of breath, dizziness. Pain is okay today, still quite sore but improved and improved pain with movement. Exam Vital Signs (past 8 hours): - 08/22/23 06:00 08/22/23 09:09 Temperature 98.8 F 98.1 F Pulse Rate 81 79 Respiratory Rate 16 20 Blood Pressure 150/52 H 126/50 L Pulse Oximetry 97 99 Oxygen Flow Rate 0 0 Oxygen Delivery Method Room Air Oxygen Flow Rate 0 Narrative Exam Narrative: GEN: no acute distress, pleasant woman who appears younger than stated age HEENT: moist mucous membranes, PERRL NECK: trachea midline, no JVD CV: regular rate and rhythm, no murmurs PULM: clear bilaterally ABD: soft, nontender, nondistended, no organomegaly EXT: no edema NEURO: awake, alert, oriented, no focal deficits Objective Labs 08/22/23 05:14 08/22/23 05:14 Labs: Laboratory Results - last 24 hr 08/22/23 05:14 WBC 7.6 RBC 2.14 L Hgb 7.4 L Hct 21.8 L MCV 101.9 H MCH 34.6 H MCHC 34.0 RDW 15.5 H Plt Count 128 L Neut % (Auto) 84.5 H Lymph % (Auto) 10.7 L [place] % (Auto) 4.6 Eos % (Auto) 0.1 L Baso % (Auto) 0.1 Neut # (Auto) 6400 Lymph # (Auto) 800 L [place] # (Auto) 400 Eos # (Auto) 0 Baso # (Auto) 0 Sodium 136 L Potassium 3.9 Chloride 107 Carbon Dioxide 26 BUN 18 H Creatinine 0.55 Estimated GFR > 60 BUN/Creatinine Ratio 32.7 H Glucose 105 Calcium 8.0 L Magnesium 2.1 PFSH Social History household members: none Smoking Status: Never smoker alcohol intake: never Assessment & Plan Assessment and plan (1) Intertrochanteric fracture of right hip: Status: Acute Plan: Continue PT / OT evaluations continue pain management adjustments, reduced opiate use. Continue tylenol, add diclofenac cream prn. Discussed management with orthopedics team, therapy, and case management today. (2) Acute blood loss anemia: Status: Acute Plan: Continue to trend h/h, Hg to 7.4 today, likely due to surgical blood loss. No evidence of hematoma on exam. (3) HTN (hypertension): Status: Acute Plan: Continue irbesartan and amlodipine (4) Hyperlipemia: Status: Acute Plan: Continue atorvastatin (5) Rheumatoid arthritis: Status: Acute Plan: Hold methotrexate for now Plan Dispo: Likely SNF, in 1-2 days depending on h/h trend Time Spent With Patient Time with patient: 50 to 69 minutes with 50% spent counseling/coordinating care Quality VTE Deep Vein Thrombosis/Pulmonary Embolism Present on Admission: No
--- NOTE | 2023-08-22 14:28 | PC.NURSE ---
Addendum entered by Carola Segura R.N. 08/22/23 14:33: made aware of low H & H this morning; no orders received. Original Note: Pt resting at intervals A/O and at times slightly confused Denies discomfort when asked. Dsg to right hip CDI SL LAC intact/patent. Call light w/in teagan, bed alarm on for pt safety. Continue w/plan of care.
--- NOTE | 2023-08-22 15:14 | CM.DPC ---
DCP Cont: Eneida from [facility] called. Confirmed that patient should be ready for discharge tomorrow. Will try for 11:00 in the am, but will confirm with her team and update this DC Pipe Washer. P: DCP to continue to follow. Plan is [facility] tomorrow as long as she is deemed medically stable. Denise Duenas RN/Operations Forester
[2023-08-22 16:22] VITALS: BP 111/45; PULSE 69; RESP 20; TEMP 36.4; O2SAT 98
[2023-08-22 18:00] VITALS: RESP 18
[2023-08-22 21:00] VITALS: BP 135/59; PULSE 71; RESP 16; TEMP 36.8; O2SAT 100
[2023-08-22] MEDS: ATORVASTATIN 20 MG TABLET 40 MG PO (21:10)
[2023-08-22 21:11] VITALS: BP 135/59; PULSE 71
[2023-08-22] MEDS: LOSARTAN 50 MG TABLET PO (21:11)
[2023-08-22] MEDS: MELATONIN 3 MG TABLET 9 MG PO (22:19)
[2023-08-23] VITALS (8 sets, daily range): BP systolic 109–131; BP diastolic 42–57; PULSE 61–98; RESP 1–20; TEMP 36.1–36.9; O2SAT 94–98
[2023-08-23] MEDS: ACETAMINOPHEN 325 MG TABLET 975 MG PO ×3 (03:47→20:43)
[2023-08-23 06:06] LABS: Add Manual Diff / Slide Review NO; Basophils Absolute Auto 0 /uL (0-100); Basophils Percent Auto 0.4 % (0-2); Eosinophils Absolute Auto 0 /uL (0-450); Eosinophils Percent Auto 0.7 % (2-4); Lymphocytes Absolute Auto 1200 /uL (1100-4500); Lymphocytes Percent Auto 18.3 % (25-40); Mean Corpuscular HGB Conc 34.2 % (30-36); Mean Corpuscular Hemoglobin 34.9 PG (26-34); Mean Corpuscular Volume 101.9 fL (80-100); Monocytes Absolute Auto 400 /uL (0-900); Monocytes Percent Auto 5.8 % (3-14); Neutrophils Absolute Auto 4800 /uL (1500-7000); Neutrophils Percent Auto 74.8 % (50-75); Platelet Count 155 X10^3/uL (150-400); White Blood Cell Count 6.5 X10^3/uL (4.5-11.0)
[2023-08-23 06:19] LABS: BUN Creatinine Ratio 30.8 (6-22); Blood Urea Nitrogen 16 mg/dL (7-17); Calcium 7.9 mg/dL (8.4-10.2); Carbon Dioxide 28 mmol/L (22-32); Chloride 106 mmol/L (98-107); Estimated Glomerular Filt Rate > 60 mL/min (>60); Glucose 91 mg/dL (80-110); HEMOLYSIS < 15 (0-50); Magnesium 2.1 mg/dL (1.6-2.3); Potassium 3.8 mmol/L (3.4-5.1); Sodium 135 mmol/L (137-145)
[2023-08-23 06:26] LABS: Hematocrit 20.4 % (36-46)
--- NOTE | 2023-08-23 07:27 | PC.NURSE ---
Dr. Rothman messaged back & ordered type & cross, transfuse. Day RN. notified.
--- NOTE | 2023-08-23 08:53 | PT-IP ANOTE ---
Pt to receive blood transfusion of 1 unit, PT will check back with pt in afternoon to see if appropriate.
--- NOTE | 2023-08-23 09:12 | CM.DPC ---
Addendum entered by Denise Duenas R.N. 08/23/23 10:05: confirmed that patient is not yet ready to dC today, with hospitalist, updated [facility] and daughter, Lenora, most likely tomorrow. Yeimy at [facility] is aware. Original Note: DCP Cont: Called over at [facility], Yeimy is in admissions today. Original plan was for patient to go to [facility] at 11:00, but she is receiving a unit of blood. Did set up time later at 1500 if she is ready, daughter Rae called, and gave her update. P: DCP to continue to follow. If patient is stable today, can go to [facility] at 1500, will keep [facility] updated. Denise Duenas RN/Phlebotomy Lab Assistant
--- NOTE | 2023-08-23 09:31 | PM.PNPO.1 ---
Subjective Subjective Date Patient Seen: 08/23/23 Time Patient Seen: 09:31 Interval history: She states her pain is mild. Denies fever or chills. No nausea or vomiting. Exam Vital Signs (past 8 hours): - 08/23/23 02:46 08/23/23 08:47 08/23/23 09:23 Temperature 98.4 F 97.6 F 97.2 F L Pulse Rate 65 98 H 81 Respiratory Rate 16 18 19 Blood Pressure 126/53 L 112/57 L 110/48 L Pulse Oximetry 98 97 Oxygen Flow Rate 0 0 Oxygen Delivery Method Room Air Oxygen Flow Rate 0 Narrative Exam Narrative: 87-year-old female resting in bed in no apparent distress. Dressing is clean. No pain along posterior thigh or calf. Able to dorsiflex and plantar flex at the ankle. Sensation grossly intact. Const General: comfortable Objective Labs 08/23/23 05:40 08/23/23 05:40 Labs: Laboratory Results - last 24 hr 08/23/23 08/23/23 05:40 07:05 WBC 6.5 RBC 2.00 L Hgb 7.0 L Hct 20.4 L* MCV 101.9 H MCH 34.9 H MCHC 34.2 RDW 15.0 H Plt Count 155 Neut % (Auto) 74.8 Lymph % (Auto) 18.3 L [place] % (Auto) 5.8 Eos % (Auto) 0.7 L Baso % (Auto) 0.4 Neut # (Auto) 4800 Lymph # (Auto) 1200 [place] # (Auto) 400 Eos # (Auto) 0 Baso # (Auto) 0 Sodium 135 L Potassium 3.8 Chloride 106 Carbon Dioxide 28 BUN 16 Creatinine 0.52 Estimated GFR > 60 BUN/Creatinine Ratio 30.8 H Glucose 91 Calcium 7.9 L Magnesium 2.1 Blood Type A Positive Antibody Screen Negative Crossmatch See Detail [facility] Social History household members: none Smoking Status: Never smoker alcohol intake: never Assessment & Plan Post-op Postoperative Procedures: Procedures Operation Date: 08/20/23 16:45 Actual Procedure Side Surgeon p Intramedullary Nailing Femur Right Michael Barrientos MD Postoperative day: 3 Postoperative status narrative: Stable Postoperative plan narrative: Weightbearing as tolerated with crutches or walker for 4 weeks After 4 weeks okay to ambulate without assistance if stable and strong enough to do so. DVT prophylaxis for 4 weeks, aspirin 81 mg b.i.d. or if unable to take aspirin and Lovenox 40 mg subQ daily. Keep dressing in place for 3 days then okay to remove and replace with clean dressing. Continue to keep clean dressing and dry. Dressing may be completely removed at 7 days. Okay for warm soap and water to run over the incision and shower or sponge bath, no soaking until wound is fully healed Follow up outpatient orthopedic clinic in 2 weeks for staple removal, [address] Barrientos with x-rays on arrival. Quality VTE Deep Vein Thrombosis/Pulmonary Embolism Present on Admission: No
[2023-08-23] MEDS: ASPIRIN EC 81 MG TABLET PO ×2 (10:54→20:42)
[2023-08-23] MEDS: AMLODIPINE 5 MG TABLET PO (10:54)
[2023-08-23] MEDS: FOLIC ACID 1 MG TABLET PO (10:55)
--- NOTE | 2023-08-23 12:29 | PT.IPTN ---
Current Diagnoses Acute posthemorrhagic anemia (08/20/23) Hyperlipidemia, unspecified (08/20/23) Essential (primary) hypertension (08/20/23) Rheumatoid arthritis, unspecified (08/20/23) Displaced intertrochanteric fracture of right femur, initial encounter for closed fracture (08/20/23) Surgery Performed Operation Date: 08/20/23 16:45 Actual Procedures p Intramedullary Nailing Femur(Right) - Michael Barrientos MD Physical Therapy Treatment Note M2 PT-IP Current Condition Start: 08/21/23 11:10 Freq: NEEDED Status: Active Protocol: Document 08/21/23 11:14 MB (Rec: 08/21/23 13:20 MB [id number]) Physical Therapy Current Condition Current Condition Evaluation Date 08/21/23 Treatment Diagnosis GLF, right hip fracture and s/ p nailing 08/20/23 M3 PT-IP Subjective Start: 08/21/23 11:10 Freq: NEEDED Status: Active Protocol: Document 08/23/23 12:50 TS (Rec: 08/23/23 12:58 TS [id number]) Subjective Physical Therapy Visit Type Type Treatment Note Visit Start Time 12:29 Visit Stop Time 12:49 Total Visit Minutes 20 Notes Per nursing pt appropriate to see, received 1 unit of blood this morning. Number of [place] PAINTER Visits 4 Physical Therapy Visit Comments Patient Comments Pt found resting in chair, eating lunch, is agreeable to work with PT. Therapy Pain Assessment Pain When Pain Assessed During Mobility Pain Present Pain Present Pain Reported M4 PT-IP Mobility and Gait Start: 08/21/23 11:10 Freq: NEEDED Status: Active Protocol: Document 08/23/23 12:50 TS (Rec: 08/23/23 12:58 TS [id number]) PT-Transfer Assessment Sit to and From Stand Sit to and from Stand Minimal Assistance,1 Person Assistance,Use of Upper Extremities Equipment Transfer Assistive Device Gait Belt,Front Wheeled Walker Orthotic/Prosthetic Devices or Brace: No Comments Mobility Comments Sit to stand from chair [place] with use of FWW. She ambulated in room ~50' SBA with FWW. Pt has a slow step to analgic gait with decreased wbering on R side. Pt sat back in chair with good safety awareness and eccentric control. Pt was left in chair, all needs met. Gait Assessment Gait Gait Assistance Required: Contact Guard Assist,1 Person Assist Distance (Feet) 50 Able to Maintain Weight Bearing Status Yes During Gait Assistive Devices Assistive Device Gait Belt,Front Wheeled Walker Orthotic/Prosthetic Devices or Brace: No Gait Deviations General Gait Pattern Antalgic,Decreased Stride Length,Decreased Feet Clearance,Step-to Gait Factors Limiting Gait Function Factors Limiting Gait Function Decreased Activity Tolerance, Decreased Strength,Pain,Poor Balance,Poor Safety Awareness Comments Gait Comments See mobility comments. PT-Balance Assessment Sitting Balance and Reactions Static Sitting Balance Ability Good Dynamic Sitting Balance Ability Fair Standing Balance and Reactions Static Standing Balance Ability Fair Dynamic Standing Balance Ability Fair Device Used RW M5 PT-IP Objective Assessments Start: 08/21/23 11:10 Freq: NEEDED Status: Active Protocol: Document 08/21/23 11:14 MB (Rec: 08/21/23 13:20 MB [id number]) Orientation Orientation/Cognition Level of Alertness Alert Orientation Name,Age,Birthday,Month,Year, Day of Week,Place,Situation Language Function Ability No Deficits Noted Safety Awareness Understands Safety Issues Memory Description No Deficits Noted Comments Pt does ask many questions and PT does provide answers and support Gross Range of Motion Upper Extremity ROM Assessment Within Functional Limits Lower Extremity ROM Assessment Right Impaired Strength Upper Extremity Strength Assessment Within Functional Limits Lower Extremity Strength Assessment Right Impaired Comments Strength Comments Pt does not tolerate ROM or MMT right LE post-op Sensation Assessment Comments Sensation Comments Pt does not follow sensory commands M6 PT-IP Treatment Start: 08/21/23 11:10 Freq: NEEDED Status: Active Protocol: Document 08/23/23 12:50 TS (Rec: 08/23/23 12:58 TS [id number]) Physical Therapy Treatment Education Education Provided Weight Bearing Status,Safety M7 PT-IP Assessment and Plan Start: 08/21/23 11:10 Freq: NEEDED Status: Active Protocol: Document 08/23/23 12:50 TS (Rec: 08/23/23 12:58 TS [id number]) PT Summary Assessment and Plan Potential Rehabilitation Potential Good Summary Impairments Pain,ROM,Strength,Balance,Bed Mobility,Transfers,Gait, Activity Tolerance Progress Towards Goals Progressing Toward Goals Assessment Summary Luz continues to make progress with her mobility. She is [place] for sit to stand with use of FWW, demonstrates good carryover of sequencing. She progressed her ambulation to ~50', continues to have a slow step to gait with decreased wbering on R side. PT continues to recommend SNF rehab at this time. Goals Bed Mobility Goal Standby Assistance Transfer Goal Standby Assistance,Front Wheeled Walker Gait Goal Standby Assistance,Front Wheel Walker Gait Distance 75 Frequency of Treatment Frequency Of Treatment Twice a Day Treatment Plan Physical Therapy Treatment Plan Bed Mobility Training,Transfer Training,Gait Training, Therapeutic Exercise,Balance Retraining,Discharge Planning, Neuromuscular Re-ed Weight Bearing Status Weight Bearing Status Weight Bear as Tolerated Recommendations To Nursing Amount of Assist Needed 1 Person Assist Discharge Recommendations PT Discharge Recommendations SNF Rehab Transportation Needs at Discharge Wheelchair/Cabulance
--- NOTE | 2023-08-23 15:41 | CM.MNRNOTE ---
Pt denies any discomfort; med w/tylenol x 1 withgood relief. assisted toBSC
--- NOTE | 2023-08-23 15:44 | PC.NURSE ---
Pt med w/ tylenol for discomfort w/good relief Assistred to BSC several times to void. Gauze Dsg to surgical site CDI Sat in chair for meals. Call light w/in reach, Pt calls appropriately for needs. Continue w/plan of care.
--- NOTE | 2023-08-23 17:44 | P.PN_ITS ---
Subjective Subjective Date Patient Seen: 08/23/23 Time Patient Seen: 08:00 Interval history: Her pain is controlled at rest, but only moderately so with activity. She did get transfusion this morning. Exam Vital Signs (past 8 hours): - 08/23/23 12:49 Pulse Rate 81 Respiratory Rate 1 L Blood Pressure 110/48 L Oxygen Delivery Method Room Air Oxygen Flow Rate 0 Narrative Exam Narrative: GEN: no acute distress HEENT: moist mucous membranes, PERRL CV: regular rate and rhythm, no murmurs PULM: clear bilaterally ABD: soft, nontender, nondistended, no organomegaly EXT: no edema, hip expected amount of tenderness of palpation, dressing bandaged and dry Objective Labs 08/23/23 05:40 08/23/23 05:40 Labs: Laboratory Results - last 24 hr 08/23/23 08/23/23 05:40 07:05 WBC 6.5 RBC 2.00 L Hgb 7.0 L Hct 20.4 L* MCV 101.9 H MCH 34.9 H MCHC 34.2 RDW 15.0 H Plt Count 155 Neut % (Auto) 74.8 Lymph % (Auto) 18.3 L [place] % (Auto) 5.8 Eos % (Auto) 0.7 L Baso % (Auto) 0.4 Neut # (Auto) 4800 Lymph # (Auto) 1200 [place] # (Auto) 400 Eos # (Auto) 0 Baso # (Auto) 0 Sodium 135 L Potassium 3.8 Chloride 106 Carbon Dioxide 28 BUN 16 Creatinine 0.52 Estimated GFR > 60 BUN/Creatinine Ratio 30.8 H Glucose 91 Calcium 7.9 L Magnesium 2.1 Blood Type A Positive Antibody Screen Negative Crossmatch See Detail [facility] Social History household members: none Smoking Status: Never smoker alcohol intake: never Assessment & Plan Assessment and plan (1) Intertrochanteric fracture of right hip: Status: Acute Plan: Continue PT / OT evaluations continue pain management adjustments, reduced opiate use. Continue tylenol, add diclofenac cream prn. Discussed management with orthopedics team, therapy, and case management today. (2) Acute blood loss anemia: Status: Acute Plan: Continue to trend h/h, Hg to 7.0 today, transfused 1U prbc (3) HTN (hypertension): Status: Acute Plan: Continue irbesartan and amlodipine (4) Hyperlipemia: Status: Acute Plan: Continue atorvastatin (5) Rheumatoid arthritis: Status: Acute Plan: Hold methotrexate for now Plan Dispo: Likely SNF, in 1-2 days depending on h/h trend Time Spent With Patient Time with patient: 50 to 69 minutes with 50% spent counseling/coordinating care Quality VTE Deep Vein Thrombosis/Pulmonary Embolism Present on Admission: No
[2023-08-23] MEDS: ATORVASTATIN 20 MG TABLET 40 MG PO (20:42)
[2023-08-23] MEDS: LOSARTAN 50 MG TABLET PO (20:43)
[2023-08-23] MEDS: MELATONIN 3 MG TABLET 9 MG PO (20:43)
[2023-08-23] MEDS: SODIUM CHLORIDE 0.9% FLUSH 10 ML IV (20:43)
[2023-08-24] MEDS: OXYCODONE IR 5 MG TABLET 2.5 MG PO (05:54)
[2023-08-24] MEDS: ACETAMINOPHEN 325 MG TABLET 975 MG PO (05:54)
[2023-08-24 06:00] VITALS: BP 139/47; PULSE 62; RESP 17; TEMP 36.2; O2SAT 98
[2023-08-24 06:27] LABS: Add Manual Diff / Slide Review NO; Basophils Absolute Auto 0 /uL (0-100); Basophils Percent Auto 0.7 % (0-2); Eosinophils Absolute Auto 100 /uL (0-450); Eosinophils Percent Auto 1.5 % (2-4); Hematocrit 27.8 % (36-46); Hemoglobin 9.5 g/dL (12.0-16.0); Lymphocytes Absolute Auto 1100 /uL (1100-4500); Lymphocytes Percent Auto 18.3 % (25-40); Mean Corpuscular HGB Conc 34.2 % (30-36); Mean Corpuscular Hemoglobin 33.5 PG (26-34); Monocytes Absolute Auto 400 /uL (0-900); Monocytes Percent Auto 6.6 % (3-14); Neutrophils Absolute Auto 4400 /uL (1500-7000); Neutrophils Percent Auto 72.9 % (50-75); Platelet Count 181 X10^3/uL (150-400); Red Blood Cell Count 2.84 X10^6/uL (4.0-5.2); Red Cell Distribution Width 16.8 % (11.6-14.8); White Blood Cell Count 6.1 X10^3/uL (4.5-11.0)
[2023-08-24 06:36] LABS: BUN Creatinine Ratio 34.7 (6-22); Blood Urea Nitrogen 17 mg/dL (7-17); Calcium 8.3 mg/dL (8.4-10.2); Carbon Dioxide 27 mmol/L (22-32); Chloride 107 mmol/L (98-107); Estimated Glomerular Filt Rate > 60 mL/min (>60); Glucose 98 mg/dL (80-110); HEMOLYSIS < 15 (0-50); Magnesium 2.2 mg/dL (1.6-2.3); Potassium 3.9 mmol/L (3.4-5.1); Sodium 136 mmol/L (137-145)
--- NOTE | 2023-08-24 06:38 | PC.NURSE ---
Patient family member requested current medication and supplement list be added into her chart. Not all supplements listed have equivalent in the EMR. Medication reconciled to the best of this RN's ability. Copy of list placed in physical chart. The list is as follows: Green Superfood Powder, one single packet, AM w/ glass of water Centrum Silver WOmen's 50+ Multi-Vit, 1 tablet w/ lunch Vitamin K2+D3, no dosage information, 1 tablet with lunch Women's Probiotic, no dosage information, 1 capsule with lunch [place] Bone-up Calcium, no dosage information, 2 capsules BID (lunch and dinner) IONIC FIZZ- Super D-K Calcium Plus - Powder, one scoop, evening in water CO Q-10, dosage unknown, 1 softgel at bedtime Strontium, unknown dosage, 1 capsule at bedtime
[2023-08-24 08:16] VITALS: BP 118/50; PULSE 64; RESP 19; TEMP 36.3; O2SAT 98
--- NOTE | 2023-08-24 09:06 | PM.DS.1 ---
History of Present Illness History of Present Illness Chief complaint: R hip pain Narrative: 87-year-old female who I am seeing today in consultation for a right intertrochanteric femur fracture. She had a ground level fall resulting in this fracture yesterday. She is currently NPO. Past medical history of hyperlipidemia hypertension and rheumatoid arthritis. Denies any recent nausea, vomiting, diarrhea, fevers, chills or any other constitutional symptoms. No other complaints at this time. Regularly she is a community ambulator. Discharge Providers Provider Date of admission: 08/20/23 01:56 Discharge Date: 08/24/23 Primary care physician: India Marino PA-C Consults: 08/20/23 01:33 Consult to Orthopedic Surgery Stat Comment: Consulting Provider: Jennifer Woodward Reason for consultation: hip fracture Has provider been notified: Yes 08/20/23 02:02 Consult to Discharge Planning Routine Comment: 08/21/23 10:30 Consult to Occupational Therapy Evaluate & Treat Comment: Physician Instructions: Evaluate and treat Consult to Physical Therapy Evaluate & Treat Comment: Physician Instructions: Evaluate and Treat Discharge provider: Manoj Escobar MD Summary Hospital Course Discharge Diagnosis: 1. Right hip pathologic fracture 2. Osteopenia 3. Rheumatoid arthritis 4. Hypertension, essential Hospital Course: Pt had right ORIF with Dr. Polanco. She developed postop anemia with Hb 7.0, transfused 2 units, with follow-up Hb 9.5. There was osteopenia noted on hip x-rays. Status at Discharge Cognitive/behavioral status at discharge: oriented Functional status at discharge: uses cane/walker Overall status at discharge: patient is not back to baseline Time Spent with Patient Time spent: Greater than 30 minutes Exam Vital Signs (past 8 hours): - 08/24/23 06:00 08/24/23 08:16 Temperature 97.2 F L 97.4 F L Pulse Rate 62 64 Respiratory Rate 17 19 Blood Pressure 139/47 L 118/50 L Pulse Oximetry 98 98 Oxygen Flow Rate 0 0 Oxygen Delivery Method Room Air Oxygen Flow Rate 0 Narrative Exam Narrative: Gen: alert, oriented, NAD Lungs: clear CV: regular ext: no distal edema Objective Labs 08/24/23 05:46 08/24/23 05:46 Labs: Laboratory Results - last 24 hr 08/23/23 08/24/23 07:05 05:46 WBC 6.1 RBC 2.84 L Hgb 9.5 L Hct 27.8 L MCV 98.0 D MCH 33.5 MCHC 34.2 RDW 16.8 H Plt Count 181 Neut % (Auto) 72.9 Lymph % (Auto) 18.3 L [place] % (Auto) 6.6 Eos % (Auto) 1.5 L Baso % (Auto) 0.7 Neut # (Auto) 4400 Lymph # (Auto) 1100 [place] # (Auto) 400 Eos # (Auto) 100 Baso # (Auto) 0 Sodium 136 L Potassium 3.9 Chloride 107 Carbon Dioxide 27 BUN 17 Creatinine 0.49 L Estimated GFR > 60 BUN/Creatinine Ratio 34.7 H Glucose 98 Calcium 8.3 L Magnesium 2.2 Crossmatch See Detail [facility] Social History household members: none Smoking Status: Never smoker alcohol intake: never Discharge Plan Discharge Plan Patient Disposition: SNF Transfer to: [facility] Consult as needed: Dental, Hearing, Mental health, Podiatry and Vision Provider Discharge Comment: s/p rt hip ORIF Discharge orders & Medications Prescriptions: New acetaminophen 325 mg Tablet 975 mg PO Q6H PRN (Reason: Fever/Mild Pain (1-3)) Qty: 30 0RF aspirin 81 mg Tablet,Delayed Release (Dr/Ec) 81 mg PO BID Qty: 48 0RF Rx Instructions: take aspirin for 28 days postop rt hip (surgery on 08/20/23) melatonin 3 mg Tablet 9 mg PO BEDTIME PRN (Reason: insomnia) Qty: 20 0RF oxycodone 5 mg Tablet 2.5 mg PO Q3H PRN (Reason: Pain, Moderate (4-6)) Qty: 30 0RF cholecalciferol (vitamin D3) [Vitamin D3] 25 mcg (1,000 unit) tablet 25 mcg PO DAILY Qty: 30 0RF calcium carbonate 500 mg calcium (1,250 mg) tablet 500 mg PO .bidcc Qty: 60 0RF Continued atorvastatin 40 mg tablet 40 mg PO DAILY Rx Instructions: takes at night amlodipine 5 mg tablet 5 mg PO DAILY methotrexate sodium 2.5 mg tablet 15 mg PO WEEKLY folic acid 1 mg tablet 1 mg PO DAILY irbesartan 150 mg tablet 150 mg PO DAILY fluoride (sodium) 1.1 % gel 1 ea PO BID coenzyme Q10 [Co Q-10] 50 mg Capsule 50 mg PO BEDTIME strontium [id number] 680-30 mg Tablet 1 tab PO BEDTIME Centrum Silver Women 8 mg iron-400 mcg-50 mcg Tablet 1 tab PO DAILY acidophilus-pectin, citrus 100 million cell-10 mg Capsule 1 cap PO DAILY vitamin D3-vitamin K2 (MK4) 1,000-100 unit-mcg Tablet 1 tab PO DAILY Follow up/Referrals: India Marino PA-C [Primary Care Provider] - Discharge Health Status Multidrug resistant organism: No MDRO Precautions: [place] Diet/Activity/Treatments Diet: Diet as Tolerated Liquid consistency: Normal/Thin Food texture: Regular Activity: Weightbearing as tolerated with crutches or walker for 4 weeks. After 4 weeks it is okay to ambulate without assistance if stable and strong enough. DVT prophylaxis for 4 weeks (default aspirin 81 mg b.i.d., is unable to take aspirin, and then Lovenox, 40 mg subcutaneous daily). Okay to change dressings to clean dry dressings after 3 days. Okay for dressings to come off completely at 7 days. Okay for warm soap and water to run over the incision and a shower or sponge bath, however no soaking the wound. Follow-up in 2 weeks for staple removal, and follow-up in [address] Barrientos with x-rays on arrival [facility] Reason for rehabilitation: Post-operative therapy Rehab type: Physical therapy and Occupational therapy Visit Report/Discharge Packet Stand Alone Forms: Patient Portal/API Discharge Data Primary Care Provider: India Marino VTE Deep Vein Thrombosis/Pulmonary Embolism Present on Admission: No
[2023-08-24] MEDS: AMLODIPINE 5 MG TABLET PO (09:15)
[2023-08-24] MEDS: FOLIC ACID 1 MG TABLET PO (09:15)
[2023-08-24] MEDS: ASPIRIN EC 81 MG TABLET PO (09:15)
--- NOTE | 2023-08-24 09:37 | CM.DPC ---
DCP Discharge SNF Per MD, pt's H&H now stable and pt medically stable to d/c to SNF today with no identified barriers. QUAN called Yeimy, covering the w/e for [facility], and updated on pt's discharge today and she confirms they can still accept and provide transport around 1030 and provided RN report number. QUAN faxed [facility], signed med list, scripts, d/c summary and MD orders to [facility] to review. QUAN updated RN and provided report number and called pt's Dtr Lenora and updated her on d/c and she remains agreeable and is heading into the hospital to be bedside to get pt ready for d/c as well. 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 Plan: Patient to d/c to [facility] today via facility van at 1030 before return home to [facility] when more appropriate with supportive Dtr assist. Loly Lakhani, TALKBACK HOST
--- NOTE | 2023-08-24 10:05 | PC.NURSE ---
Addendum entered by Evelia Waller R.N. 08/24/23 10:43: Patient discharged to [facility], report called. Original Note: Assess- Patient is alert and oriented x4, she denies pain at this time and will be going to SNF at 1030. Dressing is cdi and patient is ready to go.
--- NOTE | 2023-08-24 10:32 | PM.PN.1 ---
Exam Vital Signs (past 8 hours): - 08/24/23 06:00 08/24/23 08:16 Temperature 97.2 F L 97.4 F L Pulse Rate 62 64 Respiratory Rate 17 19 Blood Pressure 139/47 L 118/50 L Pulse Oximetry 98 98 Oxygen Flow Rate 0 0 Oxygen Delivery Method Room Air Oxygen Flow Rate 0 Objective Labs 08/24/23 05:46 08/24/23 05:46 Labs: Laboratory Results - last 24 hr 08/23/23 08/24/23 07:05 05:46 WBC 6.1 RBC 2.84 L Hgb 9.5 L Hct 27.8 L MCV 98.0 D MCH 33.5 MCHC 34.2 RDW 16.8 H Plt Count 181 Neut % (Auto) 72.9 Lymph % (Auto) 18.3 L [place] % (Auto) 6.6 Eos % (Auto) 1.5 L Baso % (Auto) 0.7 Neut # (Auto) 4400 Lymph # (Auto) 1100 [place] # (Auto) 400 Eos # (Auto) 100 Baso # (Auto) 0 Sodium 136 L Potassium 3.9 Chloride 107 Carbon Dioxide 27 BUN 17 Creatinine 0.49 L Estimated GFR > 60 BUN/Creatinine Ratio 34.7 H Glucose 98 Calcium 8.3 L Magnesium 2.2 Crossmatch See Detail [facility] Social History household members: none Smoking Status: Never smoker alcohol intake: never Assessment & Plan Assessment & Plan narrative: Patient is admitted after surgery. S/p R hip IMN POD#4. Patient has been stable and progressing with physical therapy. Patient is neurovascularly intact on exam. Patient has no signs or symptoms of DVT. Patient's dressing is clean dry and intact. Patient will be discharged today to SNF. WBAT to RLE. F/u in 2 weeks for drake removal. Quality VTE Deep Vein Thrombosis/Pulmonary Embolism Present on Admission: No
== END 2023-08-24 11:01 | DRG 481 ==
LOC: ED 23:57 → AC 08-20 01:56
PROVIDERS: Internal Medicine; Orthopaedic Surgery; Admitting Provider Internal Medicine; Emergency Provider Emergency Medicine; PCP Physician Assistant; Referring Provider Emergency Medicine; Visit Provider Internal Medicine
PROC: 0QS606Z Reposition Right Upper Femur with Intramedullary Internal Fixation Device, Open Approach (ICD-10-PCS; CPT 27245; principal; 2023-08-20 16:45)
DX: M84.651A Pathological fracture in other disease, right femur, initial encounter for fracture (principal); D62 Acute posthemorrhagic anemia; M85.851 Other specified disorders of bone density and structure, right thigh; E78.5 Hyperlipidemia, unspecified; I10 Essential (primary) hypertension; M06.9 Rheumatoid arthritis, unspecified; Z79.631 Long term (current) use of antimetabolite agent; Y93.01 Activity, walking, marching and hiking; Y92.199 Unspecified place in other specified residential institution as the place of occurrence of the external cause
CPT/HCPCS: 36415; 36430; 72192; 73502; 76000; 80048; 83735; 85025; 86850; 86900; 86901; 96374; 96376; 97116; 97161; 97530; 97535; 99284; P9016; J0171; J0690; J1100; J2270; J2405; J2704; J3010

== ENCOUNTER → 2023-08-26 21:29 | Outpatient (ROUT) | payer MEDICARE, OTHER, SELFPAY ==
[2023-08-20 03:55] VITALS: BMI 20.4
[2023-08-26 21:40] LABS: Appearance Urine UA CLEAR; Bilirubin Urine UA NEGATIVE (NEGATIVE); Color Urine UA YELLOW; Glucose Urine UA NEGATIVE (Negative); Ketones Urine UA NEGATIVE (NEGATIVE); Leukocyte Esterase Urine UA NEGATIVE (NEGATIVE); Nitrite Urine UA NEGATIVE (Negative); Occult Blood Urine UA NEGATIVE (Negative); Protein Urine UA NEGATIVE (Negative); Urobilinogen Urine UA 0.2 E.U./dL (0.2)
[2023-08-26 21:53] LABS: Amorphous Sediment Urine 2+; Bacteria Urine Occasional (0-1); Culture Indicated Urine Cult Not Indicated; Hyaline Casts Urine 0-1/LPF; RBC Urine 0-1/HPF (0-5/HPF); Squamous Epithelial Cell Urine 0-1 /HPF (0-5/HPF); WBC Urine None Seen (0-5/HPF)
== END ==
PROVIDERS: PCP Physician Assistant; Visit Provider Internal Medicine
DX: R33.9 Retention of urine, unspecified (principal)
CPT/HCPCS: 81001

== ENCOUNTER 2023-08-27 12:28 | Emergency (ER) | payer MEDICARE, OTHER, SELFPAY ==
[2023-08-20 03:55] VITALS: BMI 20.4
[2023-08-27 12:36] VITALS: BP 122/58; PULSE 79; RESP 18; TEMP 37.1; O2SAT 97; BMI 20.1
--- NOTE | 2023-08-27 13:23 | ED.GENADULT ---
HPI - General Adult General Chief complaint: Urogenital-Female Stated complaint: urinary retention Time Seen by Provider: 08/27/23 12:31 Source: patient, family and EMS Mode of arrival: EMS History of Present Illness HPI narrative: Patient is an 87-year-old female. She was recently evaluated here in the emergency department by myself and subsequently admitted to the hospital with a right hip fracture. She had surgery. Was discharged home to [facility] to be rehab where she is been. She states yesterday she felt like she had to go to the bathroom multiple times but was unable to pee when she was taken to the bathroom. In the evening she started to have increasing lower abdominal discomfort. Bladder scan was performed. Had approximately 1 L of urine in her bladder. She had a straight cath performed by the staff at the rehab facility. Approximately 1 L of urine resulted. The catheter was subsequently removed. This morning she still could not urinate. Per report there were multiple attempts to place a catheter at the facility with no success so she was sent to the emergency department. Related Data Home Medications Medication Instructions Recorded Confirmed amlodipine 5 mg tablet 5 mg PO DAILY 08/20/23 08/20/23 atorvastatin 40 mg tablet 40 mg PO DAILY 08/20/23 08/20/23 fluoride (sodium) 1.1 % dental gel 1 ea PO BID 08/20/23 08/21/23 folic acid 1 mg tablet 1 mg PO DAILY 08/20/23 08/20/23 irbesartan 150 mg tablet 150 mg PO DAILY 08/20/23 08/20/23 methotrexate sodium 2.5 mg tablet 15 mg PO WEEKLY 08/20/23 08/24/23 acidophilus 100 million 1 cap PO DAILY 08/23/23 08/23/23 cell-pectin, citrus 10 mg capsule cholecalciferol (vit D3) 1,000 1 tab PO DAILY 08/23/23 08/23/23 unit-vitamin K2 (MK4) 100 mcg tablet coenzyme Q10 50 mg capsule (Co 50 mg PO BEDTIME 08/23/23 08/23/23 Q-10) [id number] 8 mg-folic 400 1 tab PO DAILY 08/23/23 08/23/23 mcg-K 50 mcg-lutein 300 mcg tablet (Centrum Silver Women) strontium gluconate-vitamins 1 tab PO BEDTIME 08/23/23 08/23/23 [id number] acid 680 mg-30 mg tablet Previous Rx's Medication Instructions Recorded acetaminophen 325 mg tablet 975 mg (3 x 325 mg) PO Q6H PRN 08/24/23 Fever/Mild Pain (1-3) #30 tabs aspirin 81 mg tablet,delayed 81 mg PO BID #48 tabs 08/24/23 release calcium carbonate 500 mg calcium 500 mg PO .bidcc #60 tabs 08/24/23 (1,250 mg) tablet cholecalciferol (vitamin D3) 25 25 mcg PO DAILY #30 tabs 08/24/23 mcg (1,000 unit) tablet (Vitamin D3) melatonin 3 mg tablet 9 mg (3 x 3 mg) PO BEDTIME PRN 08/24/23 insomnia #20 tabs oxycodone 5 mg tablet 2.5 mg (1/2 x 5 mg) PO Q3H PRN 08/24/23 Pain, Moderate (4-6) #30 tabs nitrofurantoin 100 mg PO Q12H 5 days #10 caps 08/27/23 monohydrate/macrocrystals 100 mg capsule (Macrobid) Allergies Allergy/AdvReac Type Severity Reaction Status Date / Time No Known Drug Allergies Allergy Verified 08/19/23 22:21 Review of Systems Constitutional Constitutional: Reports system reviewed and no additional complaints, except as documented Genitourinary Genitourinary: Reports system reviewed and no additional complaints, except as documented Musculoskeletal Musculoskeletal: Reports system reviewed and no additional complaints, except as documented Integumentary/Breasts Skin/Breast: Reports system reviewed and no additional complaints, except as documented Patient History Social History household members: none Smoking Status: Never smoker alcohol intake: never Smoking Status: Never smoker Substance Use Type: does not use Exam Initial Vital Signs Initial Vital Signs: Vital Signs Temperature 98.8 F 08/27/23 12:36 Pulse Rate 79 08/27/23 12:36 Respiratory Rate 18 08/27/23 12:36 Blood Pressure 122/58 L 08/27/23 12:36 Pulse Oximetry 97 08/27/23 12:36 Oxygen Delivery Method Room Air 08/27/23 12:36 Const General: cooperative and healthy appearing [facility] Head: normal to inspection and normocephalic Resp Effort & Inspection: normal respiratory effort GI Inspection: normal to inspection and non-distended Other: No bladder prolapse noted on exam. Does have quite a bit of stool noted in the rectum. Neuro General: patient alert and patient awake Course Orders Ordered: ED Orders 08/27/23 13:14 Urinalysis and Microscopic Stat Urine Culture Stat Vital Signs Vital signs: Vital Signs - 8 hr 08/27/23 12:36 Temperature 98.8 F Pulse Rate 79 Respiratory Rate 18 Blood Pressure 122/58 L Pulse Oximetry 97 Oxygen Delivery Method Room Air Medical Decision Making Medical Records Medical records reviewed: Yes I reviewed the patient's medical records. Lab Data Lab results reviewed: Yes I reviewed the patient's lab results. Labs: Lab Results 08/27/23 Range/Units 13:14 Urine Color Yellow Urine Appearance Cloudy Urine pH 7.5 (4.5-8.0) Ur Specific [place] 1.015 (1.000-1.035) Urine Protein Negative (Negative) Urine Glucose (UA) Negative (Negative) g/dL Urine Ketones Negative (NEGATIVE) Urine Occult Blood Trace-intact (Negative) Urine Nitrate Positive H (Negative) Urine Bilirubin Negative (NEGATIVE) Urine Urobilinogen 0.2 (0.2) E.U./dL Ur Leukocyte Esterase Negative (NEGATIVE) Urine RBC 0-1/hpf (0-5/HPF) Urine WBC 0-1/hpf (0-5/HPF) Ur Squamous Epith Cells None seen (0-5/HPF) Urine Bacteria Many (>30) H (None) Ur Culture Indicated? Specimen cultured MDM Narrative Medical decision making narrative: Patient is retaining urine. She does have a nitrite positive urine because of this we will start her on antibiotics. Had a difficult time placing the Thayer catheter today. Nursing initially thought that there was bladder prolapse however after the bladder has been drained when I did an exam I did not appreciate any prolapse. She does have quite a bit of stool in the rectum. I discussed this with the patient and family at bedside. Will recommend that she start on a laxative. Will discharge patient home with instructions on how to take care of the catheter and instructions to follow-up with urology. Both patient and family expressed understanding and agreement. Discharge Plan Departure Patient Disposition: Home Clinical Impression: Acute urinary retention, Urinary tract infection Instructions: DI for Urinary Tract Infection (UTI), How to Care for Your Thayer Catheter -- Female, DI for Urinary Retention in Women Activity Restrictions/Additional Instructions: The catheter should stay in place until follow-up with either the primary doctor or Urology. You can contact the urologist with the number provided below to schedule this follow-up appointment. There was a urine culture pending at the time of your discharge. We do need to start you on antibiotics today and we will contact you if we need to change this based on the culture result. I also recommend that you start on a laxative. The probiotic would be helpful as well. Return to the emergency department for new or worsening symptoms. Prescriptions: New nitrofurantoin monohyd/m-cryst [Macrobid] 100 mg capsule 100 mg PO Q12H 5 Days Qty: 10 0RF Rx Instructions: must administer with a meal/food No Action atorvastatin 40 mg tablet 40 mg PO DAILY Rx Instructions: takes at night amlodipine 5 mg tablet 5 mg PO DAILY methotrexate sodium 2.5 mg tablet 15 mg PO WEEKLY folic acid 1 mg tablet 1 mg PO DAILY irbesartan 150 mg tablet 150 mg PO DAILY fluoride (sodium) 1.1 % gel 1 ea PO BID coenzyme Q10 [Co Q-10] 50 mg Capsule 50 mg PO BEDTIME strontium [id number] 680-30 mg Tablet 1 tab PO BEDTIME Centrum Silver Women 8 mg iron-400 mcg-50 mcg Tablet 1 tab PO DAILY acidophilus-pectin, citrus 100 million cell-10 mg Capsule 1 cap PO DAILY vitamin D3-vitamin K2 (MK4) 1,000-100 unit-mcg Tablet 1 tab PO DAILY acetaminophen 325 mg Tablet 975 mg PO Q6H PRN (Reason: Fever/Mild Pain (1-3)) Qty: 30 0RF aspirin 81 mg Tablet,Delayed Release (Dr/Ec) 81 mg PO BID Qty: 48 0RF Rx Instructions: take aspirin for 28 days postop rt hip (surgery on 08/20/23) melatonin 3 mg Tablet 9 mg PO BEDTIME PRN (Reason: insomnia) Qty: 20 0RF oxycodone 5 mg Tablet 2.5 mg PO Q3H PRN (Reason: Pain, Moderate (4-6)) Qty: 30 0RF cholecalciferol (vitamin D3) [Vitamin D3] 25 mcg (1,000 unit) tablet 25 mcg PO DAILY Qty: 30 0RF calcium carbonate 500 mg calcium (1,250 mg) tablet 500 mg PO .bidcc Qty: 60 0RF Referrals: Sandra Bazzi DO [Primary Care Provider] - Mallory Driscoll MD [Physician] - Stand Alone Forms: Patient Portal/API
[2023-08-27 13:24] LABS: Bilirubin Urine UA NEGATIVE (NEGATIVE); Color Urine UA YELLOW; Glucose Urine UA NEGATIVE (Negative); Ketones Urine UA NEGATIVE (NEGATIVE); Leukocyte Esterase Urine UA NEGATIVE (NEGATIVE); Nitrite Urine UA POSITIVE (Negative); Occult Blood Urine UA TRACE-INTACT (Negative); Protein Urine UA NEGATIVE (Negative); Specific Gravity Urine UA 1.015 (1.000-1.035); Urobilinogen Urine UA 0.2 E.U./dL (0.2)
[2023-08-27 13:27] LABS: Appearance Urine UA CLOUDY; pH Urine UA 7.5 (4.5-8.0)
[2023-08-27 13:33] LABS: Bacteria Urine Many (>30); Culture Indicated Urine Specimen Cultured; RBC Urine 0-1/HPF (0-5/HPF); Squamous Epithelial Cell Urine None Seen (0-5/HPF); WBC Urine 0-1/HPF (0-5/HPF)
[2023-08-27 14:14] VITALS: BP 122/58; PULSE 82; RESP 18; O2SAT 93
[2023-08-27 15:04] VITALS: BP 120/79; PULSE 70; RESP 16; O2SAT 97
== END 2023-08-27 15:24 | disposition home or self-care (01) ==
PROVIDERS: Emergency Provider Emergency Medicine; PCP Student in an Organized Health Care Education/Training Program
DX: N39.0 Urinary tract infection, site not specified (principal); R33.8 Other retention of urine
CPT/HCPCS: 51798; 81001; 87077; 87086; 87186; 99283

== ENCOUNTER → 2023-09-02 19:38 | Outpatient (ROUT) | payer MEDICARE, OTHER, SELFPAY ==
[2023-08-20 03:55] VITALS: BMI 20.4
[2023-09-02 19:45] LABS: Bilirubin Urine UA NEGATIVE (NEGATIVE); Color Urine UA YELLOW; Glucose Urine UA NEGATIVE (Negative); Ketones Urine UA NEGATIVE (NEGATIVE); Leukocyte Esterase Urine UA 2+ (NEGATIVE); Nitrite Urine UA NEGATIVE (Negative); Occult Blood Urine UA 3+ (Negative); Protein Urine UA NEGATIVE (Negative); Specific Gravity Urine UA <=1.005 (1.000-1.035); Urobilinogen Urine UA 0.2 E.U./dL (0.2)
[2023-09-02 19:52] LABS: Appearance Urine UA Slightly Cloudy; pH Urine UA 7.5 (4.5-8.0)
[2023-09-02 20:02] LABS: Bacteria Urine Moderate (10-30); Culture Indicated Urine Specimen Cultured; RBC Urine 1-5/HPF (0-5/HPF); Squamous Epithelial Cell Urine 0-1 /HPF (0-5/HPF); WBC Urine 1-5/HPF (0-5/HPF)
== END ==
PROVIDERS: PCP Student in an Organized Health Care Education/Training Program; Visit Provider Internal Medicine
DX: N39.0 Urinary tract infection, site not specified (principal)
CPT/HCPCS: 81001; 87077; 87086; 87186

== ENCOUNTER → 2024-01-18 12:41 | Outpatient (CLI) | payer MEDICARE, OTHER, SELFPAY ==
[2023-08-20 03:55] VITALS: BMI 20.4
--- NOTE | 2024-01-18 12:44 | DI.CT.S_ITS ---
PROCEDURE: CT PEL WO CON INDICATIONS: Displaced intertrochanteric fracture of right femur TECHNIQUE: After the administration of oral contrast, 5 mm thick sections acquired from the iliac crests to the symphysis. 5 mm coronal and sagittal reformats were then performed. For radiation dose reduction, the following was used: automated exposure control, adjustment of mA and/or kV according to patient size. COMPARISON: [facility], CR, XR PELVIS WITH LATERAL HIP RIGHT, 11/26/2023, 16:04. [facility] [place], CR, XR PELVIS WITH LATERAL HIP RIGHT, 01/15/2024, 14:44. [facility], CT, CT PEL WO CON, 08/19/2023, 23:40. FINDINGS: Image quality: Diagnostic. PELVIS: Peritoneum and Bowel: Visualized bowel loops are normal in caliber, without obstruction. Scattered colonic diverticuli, without diverticulitis. Pelvic Organs: No pelvic mass. Bladder: Normal wall thickness, accounting for underdistension. No perivesicular fat stranding. Pelvic Nodes: No enlarged lymph nodes. Miscellaneous: No inguinal hernias are seen. Mild to moderate calcification of the infrarenal abdominal aorta and iliac vasculature. No significant hip joint effusion bilaterally. Bones: Intramedullary miladis and interlocking screw fixation of comminuted right intratrochanteric fracture is intact with no perihardware lucency to suggest hardware loosening. Fracture plane remains conspicuous with mildly displaced lesser trochanter butterfly fragment (). Anatomic alignment. Mild to moderate bilateral femoroacetabular joint space narrowing. No new fracture. No calcified intra-articular loose body. Sclerotic lesions in the left iliac bone and left femoral neck with narrow zone of transition, compatible with benign bone islands. IMPRESSION: 1. Intramedullary miladis and interlocking screw fixation of comminuted right intertrochanteric fracture is intact without complication. Fracture plane remains conspicuous with mildly displaced lesser trochanter butterfly fragment. Anatomic alignment. 2. No new fracture. 3. Mild to moderate bilateral hip osteoarthritis with no significant hip joint effusion. Dictated by: Adonis Avila M.D. on 01/18/2024 at 20:12 Approved by: Adonis Avila M.D. on 01/18/2024 at 20:21
== END ==
PROVIDERS: PCP Student in an Organized Health Care Education/Training Program; Referring Provider Physician Assistant Medical; Visit Provider Physician Assistant Medical
DX: S72.141A Displaced intertrochanteric fracture of right femur, initial encounter for closed fracture (principal); M16.0 Bilateral primary osteoarthritis of hip; X58.XXXA Exposure to other specified factors, initial encounter
CPT/HCPCS: 72192